=== PATIENT | female | born 1955 | race Caucasian/White ===

== ENCOUNTER 2024-07-24 15:42 | Emergency (ER) | payer OTHER, SELFPAY ==
[2024-07-24 16:03] VITALS: BP 143/85; PULSE 64; RESP 18; O2SAT 96
--- NOTE | 2024-07-24 16:15 | ED_ITS ---
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 Urine WBC 0-2 (0-5) Ur Squamous Epith Cells None (None-Few) Urine Bacteria Few A (None) Salicylates (1.0-10) mg/dL Urine Opiates Screen Negative (Negative) Ur Oxycodone Screen Negative (Negative) Urine Methadone Screen Negative (Negative) Acetaminophen (10.0-30.0) ug/mL Ur Barbiturates Screen Negative (Negative) U Tricyclic Antidepress Negative (Negative) Ur Phencyclidine Scrn Negative (Negative) Ur Amphetamines Screen Negative (Negative) U Methamphetamines Scrn Negative (Negative) U Benzodiazepines Scrn Negative (Negative) Urine Cocaine Screen Negative (Negative) U Marijuana (THC) Screen Negative (Negative) Ur Drug Screen Comment See Note Ethyl Alcohol (0.01-0.03) % SARS-CoV-2 (PCR) (Negative) Influenza Type A (PCR) (Negative) Influenza Type B (PCR) (Negative) RSV (PCR) (Negative) Lab Acknowledgement New Spec Needed Test Added 07/24/24 07/24/24 07/24/24 Range/Units 17:40 17:45 17:51 WBC 8.55 (4.50-11.00) K/uL RBC 4.05 (4.00-5.20) m/uL Hgb 12.7 (12.0-16.0) gm/dL Hct 37.9 (33.0-51.0) % MCV 94 (80-100) fL MCH 31 (26-34) pg MCHC 34 (32-36) gm/dL RDW Coeff of Jocelin 12.5 (11.5-15.5) % Plt Count 184 (140-440) K/uL Neut % (Auto) 73.8 H (42.0-72.0) % Lymph % (Auto) 16.5 L (20-44) % [place] % (Auto) 8.2 (0.0-11.0) % Eos % (Auto) 1.2 (0.0-7.0) % Baso % (Auto) 0.2 (0.0-3.0) % Neut # (Auto) 6.30 (1.7-7.0) K/uL Lymph # (Auto) 1.40 (0.90-2.90) K/uL [place] # (Auto) 0.70 (0.00-0.90) K/UL Eos # (Auto) 0.10 (0.00-0.50) K/uL Baso # (Auto) 0.02 (0.00-0.30) K/uL Abs Immat Gran (auto) 0.01 (0.00-0.30) K/uL Imm/Tot Granulo (auto) 0.1 % Sodium 135 (135-149) mmol/L Potassium 3.5 L (3.6-5.1) mmol/L Chloride 102 (96-114) mmol/L Carbon Dioxide 26 (20-32) mmol/L Anion Gap 7 (7-15) mEq/L BUN 15 (7-30) mg/dL Creatinine 0.7 (0.5-1.5) mg/dL Estimated GFR 92 ml/min Glucose 125 H (60-115) mg/dL Lactate 0.9 (0.5-1.9) mmol/L Calcium 9.5 (8.4-10.6) mg/dL Total Bilirubin 0.6 (0.1-1.5) mg/dL AST 26 (12-35) U/L ALT 32 (4-35) U/L Alkaline Phosphatase 92 (40-150) U/L Troponin I < 0.01 L (0.01-0.04) ng/mL C-Reactive Protein < 0.5 L (0.5-1.0) mg/dL NT-Pro-B Natriuret Pep 150 pg/mL Total Protein 6.1 (6.0-8.3) g/dL Albumin 4.0 (3.3-5.0) g/dL Urine Color (Yellow) Urine Appearance (Clear) Urine pH (5.0-8.5) Ur Specific [place] (1.000-1.030) Urine Protein (Negative) Urine Glucose (UA) (Negative) Urine Ketones (Negative) Urine Blood (Negative) Urine Nitrite (Negative) Urine Bilirubin (Negative) Urine Urobilinogen (0.2-1.0) Ur Leukocyte Esterase (Negative) Urine RBC (0-2) Urine WBC (0-5) Ur Squamous Epith Cells (None-Few) Urine Bacteria (None) Salicylates < 1.0 L (1.0-10) mg/dL Urine Opiates Screen (Negative) Ur Oxycodone Screen (Negative) Urine Methadone Screen (Negative) Acetaminophen < 10.0 L (10.0-30.0) ug/mL Ur Barbiturates Screen (Negative) U Tricyclic Antidepress (Negative) Ur Phencyclidine Scrn (Negative) Ur Amphetamines Screen (Negative) U Methamphetamines Scrn (Negative) U Benzodiazepines Scrn (Negative) Urine Cocaine Screen (Negative) U Marijuana (THC) Screen (Negative) Ur Drug Screen Comment Ethyl Alcohol < 0.01 L (0.01-0.03) % SARS-CoV-2 (PCR) Negative SARS-CoV-2 (Negative) Influenza Type A (PCR) Negative PCR FLU A (Negative) Influenza Type B (PCR) Negative PCR FLU B (Negative) RSV (PCR) Negative PCR RSV (Negative) Lab Acknowledgement <Jennifer Vaz MD - Last Filed: 07/25/24 17:02> Lab Results 07/24/24 07/24/24 07/24/24 Range/Units 16:42 17:00 17:14 WBC (4.50-11.00) K/uL RBC (4.00-5.20) m/uL Hgb (12.0-16.0) gm/dL Hct (33.0-51.0) % MCV (80-100) fL MCH (26-34) pg MCHC (32-36) gm/dL RDW Coeff of Jocelin (11.5-15.5) % Plt Count (140-440) K/uL Neut % (Auto) (42.0-72.0) % Lymph % (Auto) (20-44) % [place] % (Auto) (0.0-11.0) % Eos % (Auto) (0.0-7.0) % Baso % (Auto) (0.0-3.0) % Neut # (Auto) (1.7-7.0) K/uL Lymph # (Auto) (0.90-2.90) K/uL [place] # (Auto) (0.00-0.90) K/UL Eos # (Auto) (0.00-0.50) K/uL Baso # (Auto) (0.00-0.30) K/uL Abs Immat Gran (auto) (0.00-0.30) K/uL Imm/Tot Granulo (auto) % Sodium (135-149) mmol/L Potassium (3.6-5.1) mmol/L Chloride (96-114) mmol/L Carbon Dioxide (20-32) mmol/L Anion Gap (7-15) mEq/L BUN (7-30) mg/dL Creatinine (0.5-1.5) mg/dL Estimated GFR ml/min Glucose (60-115) mg/dL Lactate (0.5-1.9) mmol/L Calcium (8.4-10.6) mg/dL Total Bilirubin (0.1-1.5) mg/dL AST (12-35) U/L ALT (4-35) U/L Alkaline Phosphatase (40-150) U/L Troponin I (0.01-0.04) ng/mL C-Reactive Protein (0.5-1.0) mg/dL NT-Pro-B Natriuret Pep pg/mL Total Protein (6.0-8.3) g/dL Albumin (3.3-5.0) g/dL Urine Color Yellow (Yellow) Urine Appearance Clear (Clear) Urine pH 7.5 (5.0-8.5) Ur Specific [place] 1.015 (1.000-1.030) Urine Protein Negative (Negative) Urine Glucose (UA) Negative (Negative) Urine Ketones Negative (Negative) Urine Blood Negative (Negative) Urine Nitrite Negative (Negative) Urine Bilirubin Negative (Negative) Urine Urobilinogen 0.2 (0.2-1.0) Ur Leukocyte Esterase Negative (Negative) Urine RBC 0-2 (0-2) Urine WBC 0-2 (0-5) Ur Squamous Epith Cells None (None-Few) Urine Bacteria Few A (None) Salicylates (1.0-10) mg/dL Urine Opiates Screen Negative (Negative) Ur Oxycodone Screen Negative (Negative) Urine Methadone Screen Negative (Negative) Acetaminophen (10.0-30.0) ug/mL Ur Barbiturates Screen Negative (Negative) U Tricyclic Antidepress Negative (Negative) Ur Phencyclidine Scrn Negative (Negative) Ur Amphetamines Screen Negative (Negative) U Methamphetamines Scrn Negative (Negative) U Benzodiazepines Scrn Negative (Negative) Urine Cocaine Screen Negative (Negative) U Marijuana (THC) Screen Negative (Negative) Ur Drug Screen Comment See Note Ethyl Alcohol (0.01-0.03) % SARS-CoV-2 (PCR) (Negative) Influenza Type A (PCR) (Negative) Influenza Type B (PCR) (Negative) RSV (PCR) (Negative) Lab Acknowledgement New Spec Needed Test Added 07/24/24 07/24/24 07/24/24 Range/Units 17:40 17:45 17:51 WBC 8.55 (4.50-11.00) K/uL RBC 4.05 (4.00-5.20) m/uL Hgb 12.7 (12.0-16.0) gm/dL Hct 37.9 (33.0-51.0) % MCV 94 (80-100) fL MCH 31 (26-34) pg MCHC 34 (32-36) gm/dL RDW Coeff of Jocelin 12.5 (11.5-15.5) % Plt Count 184 (140-440) K/uL Neut % (Auto) 73.8 H (42.0-72.0) % Lymph % (Auto) 16.5 L (20-44) % [place] % (Auto) 8.2 (0.0-11.0) % Eos % (Auto) 1.2 (0.0-7.0) % Baso % (Auto) 0.2 (0.0-3.0) % Neut # (Auto) 6.30 (1.7-7.0) K/uL Lymph # (Auto) 1.40 (0.90-2.90) K/uL [place] # (Auto) 0.70 (0.00-0.90) K/UL Eos # (Auto) 0.10 (0.00-0.50) K/uL Baso # (Auto) 0.02 (0.00-0.30) K/uL Abs Immat Gran (auto) 0.01 (0.00-0.30) K/uL Imm/Tot Granulo (auto) 0.1 % Sodium 135 (135-149) mmol/L Potassium 3.5 L (3.6-5.1) mmol/L Chloride 102 (96-114) mmol/L Carbon Dioxide 26 (20-32) mmol/L Anion Gap 7 (7-15) mEq/L BUN 15 (7-30) mg/dL Creatinine 0.7 (0.5-1.5) mg/dL Estimated GFR 92 ml/min Glucose 125 H (60-115) mg/dL Lactate 0.9 (0.5-1.9) mmol/L Calcium 9.5 (8.4-10.6) mg/dL Total Bilirubin 0.6 (0.1-1.5) mg/dL AST 26 (12-35) U/L ALT 32 (4-35) U/L Alkaline Phosphatase 92 (40-150) U/L Troponin I < 0.01 L (0.01-0.04) ng/mL C-Reactive Protein < 0.5 L (0.5-1.0) mg/dL NT-Pro-B Natriuret Pep 150 pg/mL Total Protein 6.1 (6.0-8.3) g/dL Albumin 4.0 (3.3-5.0) g/dL Urine Color (Yellow) Urine Appearance (Clear) Urine pH (5.0-8.5) Ur Specific [place] (1.000-1.030) Urine Protein (Negative) Urine Glucose (UA) (Negative) Urine Ketones (Negative) Urine Blood (Negative) Urine Nitrite (Negative) Urine Bilirubin (Negative) Urine Urobilinogen (0.2-1.0) Ur Leukocyte Esterase (Negative) Urine RBC (0-2) Urine WBC (0-5) Ur Squamous Epith Cells (None-Few) Urine Bacteria (None) Salicylates < 1.0 L (1.0-10) mg/dL Urine Opiates Screen (Negative) Ur Oxycodone Screen (Negative) Urine Methadone Screen (Negative) Acetaminophen < 10.0 L (10.0-30.0) ug/mL Ur Barbiturates Screen (Negative) U Tricyclic Antidepress (Negative) Ur Phencyclidine Scrn (Negative) Ur Amphetamines Screen (Negative) U Methamphetamines Scrn (Negative) U Benzodiazepines Scrn (Negative) Urine Cocaine Screen (Negative) U Marijuana (THC) Screen (Negative) Ur Drug Screen Comment Ethyl Alcohol < 0.01 L (0.01-0.03) % SARS-CoV-2 (PCR) Negative SARS-CoV-2 (Negative) Influenza Type A (PCR) Negative PCR FLU A (Negative) Influenza Type B (PCR) Negative PCR FLU B (Negative) RSV (PCR) Negative PCR RSV (Negative) Lab Acknowledgement <Andrew Grewal MD - Last Filed: 07/25/24 09:32> Lab Results 07/24/24 07/24/24 07/24/24 Range/Units 16:42 17:00 17:14 WBC (4.50-11.00) K/uL RBC (4.00-5.20) m/uL Hgb (12.0-16.0) gm/dL Hct (33.0-51.0) % MCV (80-100) fL MCH (26-34) pg MCHC (32-36) gm/dL RDW Coeff of Jocelin (11.5-15.5) % Plt Count (140-440) K/uL Neut % (Auto) (42.0-72.0) % Lymph % (Auto) (20-44) % [place] % (Auto) (0.0-11.0) % Eos % (Auto) (0.0-7.0) % Baso % (Auto) (0.0-3.0) % Neut # (Auto) (1.7-7.0) K/uL Lymph # (Auto) (0.90-2.90) K/uL [place] # (Auto) (0.00-0.90) K/UL Eos # (Auto) (0.00-0.50) K/uL Baso # (Auto) (0.00-0.30) K/uL Abs Immat Gran (auto) (0.00-0.30) K/uL Imm/Tot Granulo (auto) % Sodium (135-149) mmol/L Potassium (3.6-5.1) mmol/L Chloride (96-114) mmol/L Carbon Dioxide (20-32) mmol/L Anion Gap (7-15) mEq/L BUN (7-30) mg/dL Creatinine (0.5-1.5) mg/dL Estimated GFR ml/min Glucose (60-115) mg/dL Lactate (0.5-1.9) mmol/L Calcium (8.4-10.6) mg/dL Total Bilirubin (0.1-1.5) mg/dL AST (12-35) U/L ALT (4-35) U/L Alkaline Phosphatase (40-150) U/L Troponin I (0.01-0.04) ng/mL C-Reactive Protein (0.5-1.0) mg/dL NT-Pro-B Natriuret Pep pg/mL Total Protein (6.0-8.3) g/dL Albumin (3.3-5.0) g/dL Urine Color Yellow (Yellow) Urine Appearance Clear (Clear) Urine pH 7.5 (5.0-8.5) Ur Specific [place] 1.015 (1.000-1.030) Urine Protein Negative (Negative) Urine Glucose (UA) Negative (Negative) Urine Ketones Negative (Negative) Urine Blood Negative (Negative) Urine Nitrite Negative (Negative) Urine Bilirubin Negative (Negative) Urine Urobilinogen 0.2 (0.2-1.0) Ur Leukocyte Esterase Negative (Negative) Urine RBC 0-2 (0-2) Urine WBC 0-2 (0-5) Ur Squamous Epith Cells None (None-Few) Urine Bacteria Few A (None) Salicylates (1.0-10) mg/dL Urine Opiates Screen Negative (Negative) Ur Oxycodone Screen Negative (Negative) Urine Methadone Screen Negative (Negative) Acetaminophen (10.0-30.0) ug/mL Ur Barbiturates Screen Negative (Negative) U Tricyclic Antidepress Negative (Negative) Ur Phencyclidine Scrn Negative (Negative) Ur Amphetamines Screen Negative (Negative) U Methamphetamines Scrn Negative (Negative) U Benzodiazepines Scrn Negative (Negative) Urine Cocaine Screen Negative (Negative) U Marijuana (THC) Screen Negative (Negative) Ur Drug Screen Comment See Note Ethyl Alcohol (0.01-0.03) % SARS-CoV-2 (PCR) (Negative) Influenza Type A (PCR) (Negative) Influenza Type B (PCR) (Negative) RSV (PCR) (Negative) Lab Acknowledgement New Spec Needed Test Added 07/24/24 07/24/24 07/24/24 Range/Units 17:40 17:45 17:51 WBC 8.55 (4.50-11.00) K/uL RBC 4.05 (4.00-5.20) m/uL Hgb 12.7 (12.0-16.0) gm/dL Hct 37.9 (33.0-51.0) % MCV 94 (80-100) fL MCH 31 (26-34) pg MCHC 34 (32-36) gm/dL RDW Coeff of Jocelin 12.5 (11.5-15.5) % Plt Count 184 (140-440) K/uL Neut % (Auto) 73.8 H (42.0-72.0) % Lymph % (Auto) 16.5 L (20-44) % [place] % (Auto) 8.2 (0.0-11.0) % Eos % (Auto) 1.2 (0.0-7.0) % Baso % (Auto) 0.2 (0.0-3.0) % Neut # (Auto) 6.30 (1.7-7.0) K/uL Lymph # (Auto) 1.40 (0.90-2.90) K/uL [place] # (Auto) 0.70 (0.00-0.90) K/UL Eos # (Auto) 0.10 (0.00-0.50) K/uL Baso # (Auto) 0.02 (0.00-0.30) K/uL Abs Immat Gran (auto) 0.01 (0.00-0.30) K/uL Imm/Tot Granulo (auto) 0.1 % Sodium 135 (135-149) mmol/L Potassium 3.5 L (3.6-5.1) mmol/L Chloride 102 (96-114) mmol/L Carbon Dioxide 26 (20-32) mmol/L Anion Gap 7 (7-15) mEq/L BUN 15 (7-30) mg/dL Creatinine 0.7 (0.5-1.5) mg/dL Estimated GFR 92 ml/min Glucose 125 H (60-115) mg/dL Lactate 0.9 (0.5-1.9) mmol/L Calcium 9.5 (8.4-10.6) mg/dL Total Bilirubin 0.6 (0.1-1.5) mg/dL AST 26 (12-35) U/L ALT 32 (4-35) U/L Alkaline Phosphatase 92 (40-150) U/L Troponin I < 0.01 L (0.01-0.04) ng/mL C-Reactive Protein < 0.5 L (0.5-1.0) mg/dL NT-Pro-B Natriuret Pep 150 pg/mL Total Protein 6.1 (6.0-8.3) g/dL Albumin 4.0 (3.3-5.0) g/dL Urine Color (Yellow) Urine Appearance (Clear) Urine pH (5.0-8.5) Ur Specific [place] (1.000-1.030) Urine Protein (Negative) Urine Glucose (UA) (Negative) Urine Ketones (Negative) Urine Blood (Negative) Urine Nitrite (Negative) Urine Bilirubin (Negative) Urine Urobilinogen (0.2-1.0) Ur Leukocyte Esterase (Negative) Urine RBC (0-2) Urine WBC (0-5) Ur Squamous Epith Cells (None-Few) Urine Bacteria (None) Salicylates < 1.0 L (1.0-10) mg/dL Urine Opiates Screen (Negative) Ur Oxycodone Screen (Negative) Urine Methadone Screen (Negative) Acetaminophen < 10.0 L (10.0-30.0) ug/mL Ur Barbiturates Screen (Negative) U Tricyclic Antidepress (Negative) Ur Phencyclidine Scrn (Negative) Ur Amphetamines Screen (Negative) U Methamphetamines Scrn (Negative) U Benzodiazepines Scrn (Negative) Urine Cocaine Screen (Negative) U Marijuana (THC) Screen (Negative) Ur Drug Screen Comment Ethyl Alcohol < 0.01 L (0.01-0.03) % SARS-CoV-2 (PCR) Negative SARS-CoV-2 (Negative) Influenza Type A (PCR) Negative PCR FLU A (Negative) Influenza Type B (PCR) Negative PCR FLU B (Negative) RSV (PCR) Negative PCR RSV (Negative) Lab Acknowledgement <Jose F Perla MD - Last Filed: 07/25/24 13:28> Imaging Data CT scan - head: Attestation: I have reviewed the pertinent imaging results. <Jennifer Siddiqui MD - Last Filed: 07/25/24 17:02> My impression: Did visualize her head CT, did not see any acute pathology but certainly will wait for radiology over read. <Jennifer Vaz MD - Last Filed: 07/25/24 17:02> Radiologist's impression: Patient: LILY MACIAS Facility:?[facility] Patient ID:?[id number] Site Patient ID:?[id number]. Site :?[id number] Study:?CT-Head WITHOUT-07/24/2024 4:58:49 PM Ordering Physician:Lydia Rodriguez Final Report: Indication : Altered mental status. Technique : CT of the brain without intravenous contrast. Comparison: None relevant available at the time of interpretation. Findings: No acute blurring of the razo-white differentiation. There is no intracranial hemorrhage. The ventricles are proportionate to the cerebral sulci. The 4th ventricle is midline. Basal cisterns appear patent. No abnormal extra-axial fluid collection identified. Mild parenchymal volume loss. There is moderate patchy periventricular hypodensity, favored to represent chronic ischemic microvascular disease. There is no intracranial mass, mass effect or midline shift identified. No depressed calvarial fracture. Impression: 1. No acute intracranial process. 2. [id number] chronic ischemic microvascular disease. Please note that all CT scans at this facility use dose modulation, iterative reconstruction, and/or weight-based dosing when appropriate to reduce radiation dose to as low as reasonably achievable. Dictated by Rich Kerr MD @ 07/24/2024 5:28:48 PM (Electronic Signature) <Jennifer Vaz MD - Last Filed: 07/25/24 17:02> Chest x-ray: Attestation: I have reviewed the pertinent imaging results. <Jennifer Siddiqui MD - Last Filed: 07/25/24 17:02> My impression: Portable chest x-ray appears clear to me on my preliminary review. <Jennifer Vaz MD - Last Filed: 07/25/24 17:02> Radiologist's impression: Patient: LILY MACIAS Facility:?[facility] Patient ID:?[id number] Site Patient ID:?[id number]. Site :?[id number] Study:?XRay-Chest 1 VIEW-07/24/2024 5:02:35 PM Ordering Physician:Lydia Rodriguez Final Report: INDICATION: Altered mental status TECHNIQUE: Chest radiograph 1 view COMPARISON: None FINDINGS: Mediastinum: The mediastinum is normal in appearance. The heart silhouette is normal in size and morphology. Lung: Both lungs are unremarkable in appearance. No sign of pleural effusion seen. No pneumothorax is identified. Bone and Soft tissue: Unremarkable for age. IMPRESSION: 1. No acute cardiopulmonary disease is seen. Dictated by: Rodolfo Serrato MD @ 07/24/2024 17:31:12 (Electronic Signature) <Jennifer Vaz MD - Last Filed: 07/25/24 17:02> ECG Data Attestation: I personally reviewed and interpreted this ECG as follows: (Sinus bradycardia, 48 beats per minute. Poor R-wave progression in anterior precordial leads, some artifact. No acute ST segment or concerning T-wave méndez es.) <Jennifer Vaz MD - Last Filed: 07/25/24 17:02> ECG interpretation date: 07/24/24 <Jennifer Vaz MD - Last Filed: 07/25/24 17:02> ECG interpretation time: 17:22 <Jennifer Vaz MD - Last Filed: 07/25/24 17:02> Prior ECG tracings: not available for review <Jennifer Vaz MD - Last Filed: 07/25/24 17:02> Discharge Plan Discharge Clinical Impression: Bipolar disorder, Acute psychosis, Anxiety <Jennifer Vaz MD - Last Filed: 07/25/24 17:02> Patient Disposition: Home w/ Parent or Adult <Jennifer Vaz MD - Last Filed: 07/25/24 17:02> Condition: Stable <Jennifer Vaz MD - Last Filed: 07/25/24 17:02> Instructions: Bipolar Disorder (DC), Anxiety (ED) <Jennifer Vaz MD - Last Filed: 07/25/24 17:02> Additional Instructions: Please continue on your regular medications. You have an appointment with a new psychiatrist, Nigel Avalos, here in the [facility] on 07/27/2024 at 10:00 a.m. Please follow-up with your other medical providers as scheduled. If you have any concerns especially thoughts of self-harm, episodes of confusion, or if you would like to be rechecked, please come back to the ER right away <Jennifer Vaz MD - Last Filed: 07/25/24 17:02> Follow Up/Referrals: Provider,Not a Local [Primary Care Provider] - <Jennifer Vaz MD - Last Filed: 07/25/24 17:02> Stand Alone Forms: [employer] Info Instructions <Jennifer Vaz MD - Last Filed: 07/25/24 17:02>
--- NOTE | 2024-07-24 16:41 | CRLHL7_ITS ---
For Patients: As a result of the Century Cures Act, medical imaging exams and procedure reports are released immediately into your electronic medical record. You may view this report before your referring provider. If you have questions, please contact your health care provider. Indication : Altered mental status. Technique : CT of the brain without intravenous contrast. Comparison: None relevant available at the time of interpretation. Findings: No acute blurring of the razo-white differentiation. There is no intracranial hemorrhage. The ventricles are proportionate to the cerebral sulci. The 4th ventricle is midline. Basal cisterns appear patent. No abnormal extra-axial fluid collection identified. Mild parenchymal volume loss. There is moderate patchy periventricular hypodensity, favored to represent chronic ischemic microvascular disease. There is no intracranial mass, mass effect or midline shift identified. No depressed calvarial fracture. Impression: 1. No acute intracranial process. 2. [id number] chronic ischemic microvascular disease. Please note that all CT scans at this facility use dose modulation, iterative reconstruction, and/or weight-based dosing when appropriate to reduce radiation dose to as low as reasonably achievable. Dictated by Rich Kerr MD @ 07/24/2024 5:28:48 PM (Electronically Signed)
--- NOTE | 2024-07-24 16:41 | CRLHL7_ITS ---
For Patients: As a result of the Cures Act, medical imaging exams and procedure reports are released immediately into your electronic medical record. You may view this report before your referring provider. If you have questions, please contact your health care provider. INDICATION: Altered mental status TECHNIQUE: Chest radiograph 1 view COMPARISON: None FINDINGS: Mediastinum: The mediastinum is normal in appearance. The heart silhouette is normal in size and morphology. Lung: Both lungs are unremarkable in appearance. No sign of pleural effusion seen. No pneumothorax is identified. Bone and Soft tissue: Unremarkable for age. IMPRESSION: 1. No acute cardiopulmonary disease is seen. Dictated by: Rodolfo Serrato MD @ 07/24/2024 17:31:12 (Electronically Signed)
[2024-07-24 16:50] LABS: Appearance Urine Clear (Clear); Bilirubin Urine Negative (Negative); Blood Urine Negative (Negative); Color Urine Yellow (Yellow); Glucose Urine Negative (Negative); Ketones Urine Negative (Negative); Leukocyte Esterase Urine Negative (Negative); Nitrite Urine Negative (Negative); Protein Urine Negative (Negative); Specific Gravity Urine 1.015 (1.000-1.030); Urobilinogen Urine 0.2 (0.2-1.0); pH Urine 7.5 (5.0-8.5)
[2024-07-24 16:55] LABS: Bacteria Urine Few; RBC Urine 0-2 (0-2); WBC Urine 0-2 (0-5)
[2024-07-24 17:05] VITALS: BP 131/87; PULSE 57; RESP 16; O2SAT 98
--- OUTSIDE RECORDS SUMMARY | 2024-07-24 17:05 | XMS_ITS | Encounter Summary ---
Author Organization [place] Address [facility] [place] [address] Care Team Providers Care Cubing Machine Tender Name Role Phone Ada Rogel PA-C Primary Care Provider Reason for Visit * Reason Comments Medication Refill Encounter Details Date Type Department Care Team (Late st Contact Info) Description 01/13/2022 Refill [facility] [place] [id number] [place] [phone] Jose F Bunch MD [address] [place] [address] Medication Refill Social History Tobacco Use Types Packs/Day Years Used Date Smoking Tobacco: Never Assessed PHQ-2 Answer Date Recorded PHQ-2 Score 2 01/12/2022 Comments Unknown Sex and Gender Information Value Date Recorded Sex Assigned at Not on file 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 No / Unsure 01/02/2022 1:37 PM CDT documented as of this encounter Miscellaneous Notes * Telephone Encounter - Gwyn Cevallos RN - 01/13/2022 8:08 AM CDT Daysi requesting sertraline, appears this medication was discontinued and can be denied. documented in this encounter Plan of Treatment Not on file documented as of this encounter Visit Diagnoses Diagnosis Posttraumatic stress disorder documented in this encounter Additional Health Concerns Assessment Noted Time PHQ-9 Depression Total Score: 12 022 10:44 AM CDT documented as of this encounter Care Teams Cubing Machine Tender Relationship Specialty Start Date End Date Ada Rogel PA, PA-C [address] [address] PCP - General Physician Squirrel Man 11/13/21 documented as of this encounter
--- OUTSIDE RECORDS SUMMARY | 2024-07-24 17:05 | XMS_ITS | Encounter Summary ---
Author Organization [facility] Address [address] [place] [address]. [place] [address] Care Team Providers Care Solar Engineer Name Role Phone Ada Rogel PA-C Primary Care Provider Encounter Details Date Type Department Care Team (Late st Contact Info) Description 03/27/2022 MyC Medical Advice [facility] [address] [place] [phone] Genoveva Horne LICSW [address] [address] Social History Tobacco Use Types Packs/Day Years Used Date Smoking Tobacco: Never Assessed PHQ-2 Answer Date Recorded PHQ-2 Score 2 01/12/2022 Comments Unknown Sex and Gender Information Value Date Recorded Sex Assigned at Not on file 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
--- OUTSIDE RECORDS SUMMARY | 2024-07-24 17:05 | XMS_ITS | Encounter Summary ---
Author Organization [place] Address [address] [place] [address]. [place] [address] Care Team Providers Care Baking Factory Worker Name Role Phone Ada Rogel PA-C Primary Care Provider Encounter Details Date Type Department Care Team (Late st Contact Info) Description 02/11/2022 MyC Medical Advice [facility] [address] [place] [phone] Genoveva Horne LICSW [address] [address] Social History Tobacco Use Types Packs/Day Years Used Date Smoking Tobacco: Never Assessed PHQ-2 Answer Date Recorded PHQ-2 Score 2 01/12/2022 Comments Unknown Sex and Gender Information Value Date Recorded Sex Assigned at Not on file 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
--- OUTSIDE RECORDS SUMMARY | 2024-07-24 17:05 | XMS_ITS | Continuity of Care Document ---
Author Organization [facility] Address [address] [address] [place] [address] Phone Care Team Providers Care Farmworker Bulbs Name Role Phone Unavailable Unavailable Unavailable Allergies, Adverse Reactions, Alerts Substance Reaction Status Criticality formaldehyde skin breaks out throat constric Active No Information Medications Medication Instructions Dosage Effective Dates (start - stop) Status Comments Fioricet 50 mg-325 mg-40 mg Tab take 1 - 2 tablet by oral route every 4 hours as needed not to exceed 6 tablets per 24hrs - Active Vicodin 5 mg-500 mg Tab take 1 tablet by ORAL route every day at bedtime - Active omeprazole 40 mg Cap, Delayed Release take 1 capsule (40MG) by ORAL route every day for 8 weeks to heal stomach - Active Procedures Procedure Date Colonoscopy Flex; W/bx 1/mx Ugi Endo; W/bx 1/mx Level Iv-surg Path Gross/micro 11 Advance Directives Directive Yes / No Effective Date File Name No Information Encounters Encounter Description Practice Location Reason(s) For Visit Diagnoses Date Provider Providers Copied on Encounter [facility], [address] [address], [place], [id number], [place] tel:[phone] [facility] No Information 1 No Information [facility], [address] [address], [place], [id number], [place] tel:[phone] Benjamín Bullock [facility] Polyp-intes/r ect/stom-unc BehGastritis W/o BleedBenign Neoplasm ColonCondylom a AcuminatumBil e Reflux GastritisDive rticulosis Of ColonBenign Neoplasm ColonDivertic ulosis Of ColonBile Reflux GastritisCond yloma Acuminatum Matilda GIBBS [address] [facility] [address], [place], [place], [id number], [place]. tel:[phone] Referring Provider: Bibiana Pardo[address], [address]. tel:[phone] Family History Family Member Type Diagnosis Age At Onset No Information Payers Payer name Insurance type Covered libertarian ID Authormarcin woodall(s) [employer] [id number] Social History Type Description Quantity Date Captured Comments Sex Female Smoking Status No Information Chief Complaint And Reason For Visit No Information Reason For Referral Reason For Referral No Information History Of Present Illness Encounter Date Complaint History Of Prese nt Illness No Information Functional Status Date Functional Assessmen t No Information Instructions Date Instruction Additional Infor mation No Information Assessments Type Assessment Date No Information Patient Care Teams Name Effective Dates (start - stop) Status Members No Information
--- OUTSIDE RECORDS SUMMARY | 2024-07-24 17:05 | XMS_ITS | Referral Summary ---
Author Organization [place] Address [facility] [place] [address] Care Team Providers Care Latin Dancer Name Role Phone Ada RogelC Primary Care Provider Allergies Active Allergy Reactions Criticality Noted Date Comments Formaldehyde 01/02/2022 Perfume 01/02/2022 Medications * This document contains information received from the source organization and may not represent a complete record from that organization. acetaminophen (TYLENOL) 325 MG tablet Take 2 tablets (650 mg) by mouth every 4 hours as needed for mild pain or fever 01/06/20 22 Active folic acid (FOLVITE) 1 MG tabletIndicatio ns:Altered mental status, unspecified altered mental status type Take 1 tablet (1 mg) by mouth daily 30 tablet 01/07/20 22 Active melatonin 5 MG tabletIndicatio ns:Altered mental status, unspecified altered mental status type Take 1 tablet (5 mg) by mouth At Bedtime 30 tablet 01/06/20 22 Active multivitamin w/minerals (THERA-VIT-M) tabletIndicatio ns:Altered mental status, unspecified altered mental status type Take 1 tablet by mouth daily 30 tablet 01/07/20 22 Active amLODIPine (NORVASC) 5 MG tabletIndicatio ns:Hypertension , unspecified type Take 1 tablet (5 mg) by mouth daily 30 tablet 01/06/20 22 Active propranolol ER (INDERAL LA) 60 MG 24 hr capsuleIndicati ons:Other migraine without status migrainosus, not intractable Take 1 capsule (60 mg) by mouth daily 30 capsule 01/06/20 22 Active SUMAtriptan (IMITREX) 25 MG tabletIndicatio ns:Other migraine without status migrainosus, not intractable Take 1 tablet (25 mg) by mouth at onset of headache for migraine May repeat in 2 hours. Max 8 tablets/24 hours. 30 tablet 2 01/24/20 22 Active QUEtiapine (SEROQUEL) 50 MG tabletIndicatio ns:Hypomania (H) TAKE 2 TABLETS BY MOUTH DAILY AT BEDTIME 60 tablet 02/24/20 22 Active amitriptyline (ELAVIL) 25 MG tablet Take 25-50 mg by mouth daily 10/25/19 22 022 Discontinued sertraline (ZOLOFT) 100 MG tabletIndicatio ns:Posttraumati c stress disorder Take 1 tablet (100 mg) by mouth daily 30 tablet 12/16/19 22 022 Discontinued Active Problems Problem Noted Date Diagnosed Date Confusion 01/02/2022 Posttraumatic stress disorder 11/19/2021 Lumbago 06/14/2013 Social History Tobacco Use Types Packs/Day Years Used Date Smoking Tobacco: Never Assessed PHQ-2 Answer Date Recorded PHQ-2 Score 2 01/12/2022 Adolescent Education Answer Date Record ed Getting School Help Needed Not on file 04/12 Comments Unknown Sex and Gender Information Value Date Recorded Sex Assigned at Not on file Legal Sex Female 3:46 AM 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 Gender Identity Not on file Sexual Orientation Not on file Last Filed Vital Signs Vital Sign Reading Time Taken Comments Blood Pressure 118/76 01/05/2022 3:47 PM CDT Pulse 58 01/05/2022 3:47 PM CDT Temperature 36.4 C (97.6 F) 01/05/2022 3:47 PM CDT Respiratory Rate 16 01/05/2022 3:47 PM CDT Oxygen Saturation 97% 01/05/2022 3:47 PM CDT Inhaled Oxygen Concentration - - Weight 62.9 kg (138 lb 11.2 oz) 01/04/2022 8:16 AM CDT Height 154.9 cm (5' 1) 01/04/2022 4:00 PM CDT Body Mass Index 26.21 01/04/2022 8:16 AM CDT Plan of Treatment Not on file Procedures Procedure Name Priority Date/Time Associated Diagnosis Comments BASIC METABOLIC PANEL STAT 01/03/2022 4:19 PM CDT COLONOSCOPY - HIM SCAN Routine 06/28/2015 from Last 3 Months or Most Recently Relevant to Health Maintenance Results * Basic metabolic panel (01/03/2022 4:19 PM CDT) Creatinine 0.92 0.51 - 0.95 mg/dL 01/03/2022 5:21 PM CDT [facility] Sodium 137 136 - 145 mmol/L 01/03/2022 5:21 PM CDT [facility] Potassium 4.0 3.4 - 5.3 mmol/L 01/03/2022 5:21 PM CDT [facility] Urea Nitrogen 15.4 8.0 - 23.0 mg/dL 01/03/2022 5:21 PM CDT [facility] Chloride 105 98 - 107 mmol/L 01/03/2022 5:21 PM CDT [facility] Carbon Dioxide (CO2) 22 22 - 29 mmol/L 01/03/2022 5:21 PM CDT [facility] Anion Gap 10 7 - 15 mmol/L 01/03/2022 5:21 PM CDT [facility] Glucose 95 70 - 99 mg/dL 01/03/2022 5:21 PM CDT [facility] GFR Estimate 67 >60 mL/min/1.7 3m2 01/03/2022 5:21 PM CDT [facility] Comment:Effective May 292020 eGFRcr in adults is calculated using the 2020 CKD-EPI creatinine equation which includes age and gender (Caryn et al., NEJ, DOI: 10.1056/WRFVio5147828) Calcium 9.6 8.8 - 10.2 mg/dL 01/03/2022 5:21 PM CDT [facility] Blood STRUCTURE OF RIGHT UPPER LIMB / Unknown Venipuncture / Unknown 01/03/2022 4:19 PM CDT 01/03/2022 4:26 PM CDT us [facility] - BLOOD ORDERABLES Fin al Result [facility] [place] [facility] [address] [facility] [address], [address] [place] [address] [phone] * Colonoscopy - HIM Scan (06/28/2015) Narrative Cristy Chinchilla Snehal - 06/28/2015 [facility] -Progress note Patient Reported PROCEDURES Final Result from Last 3 Months or Most Recently Relevant to Health Maintenance Insurance [employer] OTHER on file [address] [place] [address] [employer] Advance Directives For more information, please contact: [phone] * Full Code (Latest Code Status on File) Date Activated Date Inactivated Comments 01/04/2022 7:45 AM 01/05/2022 8:01 PM All basic an d advanced life-sustaining interventions are performed as appropriate Question Answer Comments Code status determined by: Unable to dis cuss and no AD/POLST on file; continue PREVIOUSLY ORDERED code status * Full Code Date Activated Date Inactivated Comments 01/03/2022 6:02 PM 01/04/2022 7:45 AM All basic and advanced life-sustaining interventions are performed as appropriate Question Answer Comments Code status determined by: Discussion with guillermo nt/ legal decision maker Care Teams Latin Dancer Relationship Specialty Start Date End Date Ada Rogel PA, PA-C [address] [address] PCP - General Physician Steel Tier 11/13/21
--- OUTSIDE RECORDS SUMMARY | 2024-07-24 17:05 | XMS_ITS | Clinical Summary ---
Author Organization [place] Address [facility] [place] [address] Care Team Providers Care Metalworking Specialist Name Role Phone Ada RogelC Primary Care [...] on file Legal Sex Female 3:46 AM PAIN MANAGEMENT NURSE Gender Identity Not on file Sexual Orientation [...] 01/04/2022 8:16 AM CDT Plan of Treatment Health Maintenance Due Date Last Done Comments ADVANCE CARE PLANNING 1955 ANNUAL REVIEW OF HM ORDERS [address] CT COLONOGRAPHY 1955 DEXA 1953 FIT 1953 FLEX SIG 1953 MAMMO SCREENING 1953 sDNA (Cologuard) 1953 HEPATITIS C SCREENING 1971 LIPID 1993 ZOSTER IMMUNIZATION (1 of 2) 2003 FALL RISK ASSESSMENT 2018 MEDICARE ANNUAL WELLNESS VISIT 2018 Pneumococcal Vaccine: 50+ Years (2 of 2 - PPSV23) 07/18/2019 05/23/2019 BMP 01/03/2023 01/03/2022, 01/02/2022 COVID-19 Vaccine ( season) 2024 07/11/2021, 11/19/2020, 10/22/2020 INFLUENZA VACCINE (#1) 2024 04/16/2019, 2017 PHQ-2 (once per calendar year) 2024 01/12/2022, 01/12/2022, 12/01/2021, Additional history exists GLUCOSE 01/03/2025 01/03/2022, 01/02/2022 COLONOSCOPY 06/28/2025 06/28/2015 COLORECTAL CANCER SCREENING 06/28/2025 RSV VACCINE (1 - 1-dose 75+ series) 2028 DTAP/TDAP/TD IMMUNIZATION (2 - Td or Tdap) 04/18/2028 04/18/2018, 01/02/1998 HPV IMMUNIZATION Aged Out No longer e ligible based on patient's age to complete this topic MENINGITIS IMMUNIZATION Aged Out No l onger eligible based on patient's age to complete this topic RSV MONOCLONAL ANTIBODY Aged Out No l onger eligible based on patient's age to complete this topic Procedures Procedure Name Priority Date/Time Associated Diagnosis [...] includes age and gender (Caryn et al., NEJM, DOI: 10.1056/[id number]) Calcium 9.6 8.8 - 10.2 mg/dL 01/03/2022 5:21 PM CDT [facility] Blood STRUCTURE OF RIGHT UPPER LIMB / Unknown Venipuncture / Unknown 01/03/2022 4:19 PM CDT 01/03/2022 4:26 PM CDT us [facility] - BLOOD ORDERABLES Fin al Result [facility] [facility] [address] [facility] [address], [address] [place] [address], [facility] [phone] * Colonoscopy - HIM Scan (06/28/2015) Narrative Cristy Chinchilla - 06/28/2015 [facility] -Progress note Patient Reported PROCEDURES Final Result from Last 3 Months or Most Recently Relevant to Health Maintenance Insurance [employer] OTHER on file [employer] Advance Directives For more information, please contact: [phone] * Full Code (Latest Code Status on [...] guillermo nt/ legal decision maker Care Teams Metalworking Specialist Relationship Specialty Start Date End Date Ada Rogel PA, PA-C [address] [address] PCP - General Physician Coiled Tubing Operator 11/13/21
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
--- OUTSIDE RECORDS SUMMARY | 2024-07-24 17:05 | XMS_ITS | Encounter Summary ---
Author Organization [place] Address [address] [place] [address]. [place] [address] Care Team Providers Care Orthotist Prosthetist Name Role Phone Ada Rogel PA-C Primary Care Provider Encounter Details Date Type Department Care Team (Late st Contact Info) Description 03/09/2022 MyC Medical Advice [facility] [address] [address] [place] [id number] Genoveva Horne LICSW [address] [address] Social History Tobacco Use Types Packs/Day Years Used Date Smoking Tobacco: Never Assessed PHQ-2 Answer Date Recorded PHQ-2 Score 2 01/12/2022 Comments Unknown Sex and Gender Information Value Date Recorded Sex Assigned at Not on file Legal Sex Female 3:46 AM [employer] Gender Identity Not on file Sexual Orientation Not on file documented as of this encounter Plan of Treatment Not on file documented as of this encounter Visit Diagnoses Not on filedocumented in this encounter Additional Health Concerns Assessment Noted Time PHQ-9 Depression Total Score: 12 022 10:44 AM CDT documented as of this encounter Care Teams Orthotist Prosthetist Relationship Specialty Start Date End Date Ada Rogel PA, PA-C [address] [address] PCP - General Physician Perfumer 11/13/21 documented as of this encounter
--- OUTSIDE RECORDS SUMMARY | 2024-07-24 17:05 | XMS_ITS | Encounter Summary ---
Author Organization [place] Address [facility] [place] [address] Care Team Providers Care Lay Up Operator Name Role Phone Ada Rogel PA-C Primary Care Provider Encounter Details Date Type Department Care Team (Late st Contact Info) Description 11/14/2021 MyC Medical Advice [facility] [address] [facility] [address] [place] [address] Rosa Euceda LICSW Social History Tobacco Use Types Packs/Day Years Used Date Smoking Tobacco: Never Assessed PHQ-2 Answer Date Recorded PHQ-2 Score 3 11/13/2021 Comments Unknown Sex and Gender Information Value Date Recorded Sex Assigned at Not on file Legal Sex Female 3:46 AM [employer] Gender Identity Not on file Sexual Orientation Not on file documented as of this encounter Plan of Treatment Not on file documented as of this encounter Visit Diagnoses Not on filedocumented in this encounter Additional Health Concerns Infection Onset Date Last Indicated Resolved Time Rule Out C-difficile 01/04/2022 01/04/2022 022 12:57 PM CDT Assessment Noted Time PHQ-9 Depression Total Score: 18 022 7:57 AM CDT documented as of this encounter Care Teams Lay Up Operator Relationship Specialty Start Date End Date Ada Rogel PA, PA-C [address] [address] PCP - General Physician Marbleizing Machine Tender 11/13/21 documented as of this encounter
--- OUTSIDE RECORDS SUMMARY | 2024-07-24 17:05 | XMS_ITS ---
Author Organization [facility] [place] [facility] Address [address] [place] [address] Care Team Providers Care Railcar Mechanic Name Role Phone Ada Rogel Primary Care Provider Ian Batista Unavailable [phone] REASON FOR VISIT questions on lab and medication Medications Medication SIG (Take, Route, Fr equency, Duration) Notes Start Date End Date Status hydrOXYzine HCl 25 MG 1 tablet orally On ce a day as needed Active Encounters Encounter Location Date Provider Diagnosis [address] [address] 12/20/2023 Ian Batista Anxiety F41.1 and Hypertension I10 Assessments Encounter Date Diagnosis (ICD Code) Assessment Notes Treatment Notes Treatment Clinical Notes Section Notes 12/20/2023 Anxiety (ICD-10 - F41.1) 12/20/2023 Hypertension (ICD-10 - I10) Plan Of Treatment Medication Medication Name Sig Start Date Stop Date Notes hydrOXYzine HCl 25 MG 1 tablet orally Once a day as needed Future Test Test Name Order Date Basic Metabolic Panel 12/21/2023 Progress Notes * Annie BASS ADOB: (68 yo F)Acc No.[id number]:12/20/2023 Patient: Demetria Annie ROSE :1955 A ge:68 Y S ex:Female [address] [facility] [place], [address] * Refills Refill hydrOXYzine HCl Tablet, 25 MG, orally, 30, 1 tablet, Once a day as needed, Refills=1 Subjective: * Chief Complaints: * Q uestions on lab and medication * Medical History: * Surgical History: * Hospitalization/Major Diagno stic Procedure: * Medications: Objective: * Vitals: * Physical Examination: Assessment: * Assessment: 1. A nxiety - F41.1 2 . H ypertension - I10 Plan: * Treatment: 2. 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
--- OUTSIDE RECORDS SUMMARY | 2024-07-24 17:05 | XMS_ITS ---
Author Organization [facility] Address [address] [place] [address] Care Team Providers Care Geriatric Psychiatrist Name Role Phone Ada Rogel Primary Care Provider Encounters Encounter Location Date Provider Diagnosis [address] [place] [address] 12/20/2023 Ada Rogel Plan Of Treatment No Information Progress Notes * Annie BASS ADOB: (68 yo F)Acc No.[id number]:12/20/2023 Patient: B Annie ROSE :1955 A ge:68 Y S ex:Female [address] [facility], [address] * true * Date: Generated for Gloria smith/Sai/eTransmitting on: 0 07/24/2024 05:05 PM CAR HOP
--- OUTSIDE RECORDS SUMMARY | 2024-07-24 17:05 | XMS_ITS | Clinical Summary ---
Author Organization [facility] Address [place], [place] [address] Care Team Providers Care Potato Peeler Name Role Phone Mayte Grossman DO Primary Care Provider [phone] Allergies Active Allergy Reactions Criticality Noted Date Comments Formaldehyde Analogues Hives,Rash High 01/08/2011 Perfume *Unknown Unknown 01/02/2022 Medications * This document contains information received from the source organization and may not represent a complete record from that organization. diclofenac topical (Voltaren Arthritis Pain) 1 % gelIndications:Chr onic musculoskeletal pain Apply 4 g to affected areas topically to affected area(s) 4 times daily if needed 450 g 05/04/20 24 Active lidocaine 5 % ointmentIndication s:Hemorrhoids, unspecified hemorrhoid type Apply topically to affected area(s) 3 times daily if needed (hemorrhoids). 35.44 g 05/04/20 24 Active nicotine 7 mg/24 hr (NICODERM; HABITROL) 7 mg/24 hr patchIndications:T obacco use disorder Apply 1 Patch on dry, clean, hairless skin once daily if needed for Nicotine Craving. 28 Patch 4 12:15 PM [employer] 05/04/20 24 Active SUMAtriptan (IMITREX) 50 mg tabletIndications: Migraine without aura, not refractory Take 1 Tablet (50 mg) by mouth 2 times daily if needed for Migraine or Headache. Give at minimum 2hrs apart. Max Dose: 200mg per 24hrs. 10 Tablet 4 12:15 PM [employer] 05/04/20 24 Active QUEtiapine (SEROQUEL) 100 mg tabletIndications: Bipolar II disorder (HC) Take 1 Tablet (100 mg) by mouth at bedtime. 30 Tablet 1 06/01/20 24 Active Additional Information Patient taking differently: 50 mgOral BEDTIME, Reported on 07/13/2024 traZODone (DESYREL) 100 mg tabletIndications: Insomnia, unspecified type Take 0.5-1 Tablets (50-100 mg) by mouth at bedtime, may repeat once. 30 Tablet 1 06/01/20 24 Active folic acid 1 mg tabletIndications: Alcohol dependence with unspecified alcohol-induced disorder (HC) Take 1 Tablet (1 mg) by mouth once daily. 30 Tablet 1 06/01/20 24 Active multivitamin,ther and minerals (multivitamin with minerals) tabletIndications: Alcohol dependence with unspecified alcohol-induced disorder (HC) Take 1 Tablet by mouth once daily. 30 Tablet 1 06/01/20 24 Active thiamine (VITAMIN B1) 100 mg tabletIndications: Alcohol use disorder, severe, dependence (HC) Take 1 Tablet (100 mg) by mouth once daily. 30 Tablet 1 06/01/20 24 Active naltrexone (REVIA) 50 mg tabletIndications: Alcohol use disorder, severe, dependence (HC) Take 1 Tablet (50 mg) by mouth once daily in the evening. 30 Tablet 1 06/01/20 24 Active rosuvastatin (CRESTOR) 20 mg tabletIndications: Hyperlipidemia, unspecified hyperlipidemia type Take 1 Tablet (20 mg) by mouth at bedtime. 90 Tablet 1 07/06/19 25 Active FLUoxetine (PROZAC) 40 mg capsuleIndications :AUDREY (generalized anxiety disorder),Bipolar II disorder (HC) Take 1 Capsule (40 mg) by mouth at bedtime. 30 Capsule 07/13/19 25 Active hydrOXYzine HCL (ATARAX) 50 mg tabletIndications: AUDREY (generalized anxiety disorder) Take 0.5-1 Tablets (25-50 mg) by mouth every 8 hours if needed for Anxiety. 45 Tablet 07/13/19 25 Active methocarbamoL 500 mg tablet Take 1,000 mg by mouth every 6 hours if needed. 025 Discontinu ed(*Patien t states no longer taking) methocarbamoL 500 mg tabletIndications: Muscle spasm Take 2 Tablets (1,000 mg) by mouth every 8 hours if needed for Muscle Spasm. 60 Tablet 05/15/20 24 025 Discontinu ed(*Patien t states no longer taking) FLUoxetine (PROZAC) 20 mg capsuleIndications :AUDREY (generalized anxiety disorder),Bipolar II disorder (HC) Take 1 Capsule (20 mg) by mouth at bedtime. 30 Capsule 1 06/01/20 24 025 Discontinu ed(*Medica tion adjustment ) hydrOXYzine HCL (ATARAX) 25 mg tabletIndications: AUDREY (generalized anxiety disorder) Take 1 Tablet (25 mg) by mouth every 8 hours if needed for Anxiety or Itching. 30 Tablet 1 06/01/20 24 025 Discontinu ed(Reorder (E-cancel not sent)) propranolol ER (INDERAL LA) 60 mg Cs24 Sustained-Release capsule Take 60 mg by mouth once daily. 025 Discontinu ed(*Patien t states no longer taking) FLUoxetine (PROZAC) 20 mg capsuleIndications :Bipolar II disorder, severe, depressed, with anxious distress (HC) Take 1 Capsule (20 mg) by mouth once daily in the morning. 30 Capsule 1 07/12/19 25 025 Discontinu ed(Duplica te therapy (E-cancel not sent)) hydrOXYzine HCL (ATARAX) 25 mg tabletIndications: AUDREY (generalized anxiety disorder) Take 1 Tablet (25 mg) by mouth every 6 hours if needed for Anxiety. 25 Tablet 07/12/19 25 025 Discontinu ed(Duplica te therapy (E-cancel not sent)) Active Problems Problem Noted Date Diagnosed Date Raynaud's disease 04/27/2024 Polyarthritis 04/27/2024 Migraine without aura, not refractory 04/27/2024 Bipolar II disorder, severe, depressed, with anxious distress 04/26/2024 Alcohol use disorder, severe, in early remission 04/26/2024 Post-traumatic stress disorder, unspecified 03/30 Hallucinations, unspecified 04/26/2024 Tobacco use disorder 04/22/2024 AUDREY (generalized anxiety disorder) Resolved Problems Problem Noted Date Diagnosed Date Resolved Date Vitamin D deficiency 04/27/2024 025 Hyperkalemia 04/27/2024 07/13/2024 Wernicke encephalopathy 04/22/2024 10 Alcohol use disorder 04/22/2024 024 Alcohol dependence 04/22/2024 Hypokalemia 04/22/2024 04/26/2024 MDD (major depressive disord er), recurrent episode, moderate 04/26/2024 Encounters * This document contains information received from the source organization and may not represent a complete record from that organization. Date Type Department Care Team Description 07/24/2024 2:00 PM [employer] Office Visit [facility] [address] [place] [address] Deirdre Sim MD 07/20/2024 Refill [facility] [address] [address] Charlotte Solis NP Refill Request (Folic Acid, Quetiapine) 07/18/2024 2:00 PM [employer] Ancillary Procedure [facility] [address] [place] [address] 07/18/2024 1:30 PM [employer] Ancillary Procedure [facility] [address] [place] [address] 07/18/2024 Travel 07/13/2024 3:15 PM [employer] Office Visit [facility] [address] [place] [address] Mayte Grossman, DO Medicare ANNUAL (subsequent) Visit (would like to discuss medications); Immunization/Injecti on 07/13/2024 Travel 07/12/2024 Telephone [facility] [address] [place] [address] Mayte Grossman, DO Medication Problem 07/10/2024 Refill [facility] [address] [address] Charlotte Solis NP Refill Request (Fluoxetine, Trazodone) 07/06/2024 9:35 AM [employer] Office Visit [facility] [address] [place] [address] Mayte Grossman DO Establish Care; Toe Pain/problem (right great toe) 07/06/2024 Travel 06/24/2024 Refill [facility] [address] [address] Charlotte Solis NP Refill Request (Trazodone) 06/22/2024 Telephone [facility] [address] [place] [address] Deirdre Sim MD Appointment Reminder (07-24-24 ) 06/13/2024 2:55 PM [employer] Office Visit [facility] [address] [place] [address] Joaquin Cardenas MD Referral (Mental health, orthopedic for hips) 06/13/2024 Travel 06/01/2024 9:00 AM [employer] - 06/01/2024 11:59 PM [employer] Hospital Encounter [facility] [address] [address] Pema Griggs MD AUDREY (generalized anxiety disorder); Bipolar II disorder, severe, depressed, with anxious distress (HC); Bipolar II disorder (HC); Insomnia, unspecified type; Alcohol dependence with unspecified alcohol-induced disorder (HC); Alcohol use disorder, severe, dependence (HC); Tobacco use disorder 05/31/2024 9:00 AM [employer] - 05/31/2024 11:59 PM [employer] Hospital Encounter [facility] [address] [address] Pema Griggs MD AUDREY (generalized anxiety disorder); Bipolar II disorder, severe, depressed, with anxious distress (HC) 05/31/2024 Telephone [facility] [address] [address] Gonzalez Richards Mental Health Care Coordination 05/30/2024 9:00 AM [employer] - 05/30/2024 11:59 PM [employer] Hospital Encounter [facility] [address] [place] [address] Pema Griggs MD AUDREY (generalized anxiety disorder); Bipolar II disorder, severe, depressed, with anxious distress (HC) 05/30/2024 Travel 05/30/2024 Telephone [facility] [address] [place] [address] maverick GonzalezshiLeah Mental Health Care Coordination 05/30/2024 Telephone [facility] [address] [place] [address] Gonzalez Richards Mental Health Care Coordination 05/29/2024 9:00 AM [employer] - 05/29/2024 11:59 PM [employer] Hospital Encounter [facility] [address] [facility] [address] [place] [address] Pema Griggs MD AUDREY (generalized anxiety disorder); Bipolar II disorder, severe, depressed, with anxious distress (HC) 05/29/2024 Telephone [facility] [address] [place] [address] Esthela Beyer, [facility] for [facility] 05/26/2024 9:00 AM [employer]TING - 05/26/2024 11:59 PM [employer] Hospital Encounter [facility] [address] [facility] [address] [place] [address] Pema Griggs MD AUDREY (generalized anxiety disorder); Bipolar II disorder, severe, depressed, with anxious distress (HC) 05/24/2024 9:00 AM [employer] - 05/24/2024 11:59 PM [employer] Hospital Encounter [facility] [address] [address] Pema Griggs MD Tobacco use disorder (Primary Dx); AUDREY (generalized anxiety disorder); Bipolar II disorder, severe, depressed, with anxious distress (HC); Alcohol use disorder, severe, dependence (HC); Post-traumatic stress disorder, unspecified 05/23/2024 9:00 AM [employer] - 05/23/2024 11:59 PM [employer] Hospital Encounter [facility] [address] [facility] [address] [place] [address] Pema Griggs MD AUDREY (generalized anxiety disorder); Bipolar II disorder, severe, depressed, with anxious distress (HC) 05/22/2024 9:00 AM [employer] - 05/22/2024 11:59 PM [employer] Hospital Encounter [facility] [address] [facility] [address] [place] [address] Pema Griggs MD Tobacco use disorder (Primary Dx); AUDREY (generalized anxiety disorder); Bipolar II disorder, severe, depressed, with anxious distress (HC); Alcohol use disorder, severe, dependence (HC); Post-traumatic stress disorder, unspecified 05/19/2024 Telephone [facility] [address] [facility] [address] [place] [address] Jose Carlos Hernández RN Mental Health Care Coordination 05/19/2024 Telephone [facility] [address] [facility] [address] [place] [address] Jose Carlos Hernández, AZEB Mental Health Care Coordination 05/18/2024 8:57 AM [employer] - 05/18/2024 11:59 PM [employer] Hospital Encounter [facility] [address] [facility] [address] [place] [address] Pema Griggs MD Tobacco use disorder (Primary Dx); AUDREY (generalized anxiety disorder); Bipolar II disorder, severe, depressed, with anxious distress (HC); Alcohol use disorder, severe, dependence (HC); Post-traumatic stress disorder, unspecified 05/17/2024 8:58 AM [employer] - 05/17/2024 11:59 PM [employer] Hospital Encounter [facility] [address] [facility] [address] [place] [address] Pema Griggs MD AUDREY (generalized anxiety disorder); Bipolar II disorder, severe, depressed, with anxious distress (HC) 05/16/2024 9:00 AM [employer] - 05/16/2024 11:59 PM [employer] Hospital Encounter [facility] [address] [facility] [place] [address] Pema Griggs MD AUDREY (generalized anxiety disorder); Bipolar II disorder, severe, depressed, with anxious distress (HC) 05/15/2024 8:09 AM [employer]TING - 05/15/2024 11:59 PM [employer] Hospital Encounter [facility] [address] [facility] [place] [address] Pema Griggs MD AUDREY (generalized anxiety disorder) (Primary Dx); Bipolar II disorder, severe, depressed, with anxious distress (HC); Muscle spasm; Tobacco use disorder; Alcohol use disorder, severe, dependence (HC); Post-traumatic stress disorder, unspecified; Hyperkalemia; Migraine without aura, not refractory; Polyarthritis; Raynaud's disease without gangrene 05/15/2024 Travel 05/05/2024 Telephone [facility] [address] [address] [facility] (Updated phone screen for PHP. ) 05/02/2024 Telephone [facility] [address] [address] Radha Terry [facility] Mental Health Care Coordination (PHP telephone screen) 04/26/2024 Travel 04/23/2024 3:08 PM CDT - 04/26/2024 10:40 AM CDT Hospital Encounter [facility] [address] [place] [address] Kevin Purcell MD Bipolar II disorder (HC) (Primary Dx); Other problems related to social environment Discharge Disposition: Rehab Facility or Unit 04/22/2024 3:47 PM CDT - 04/23/2024 3:07 PM CDT Hospital Encounter [facility] [address] [place] [address] Jonathan Taylor MD McQuistan, Ian Mark, Depression, unspecified depression type (Primary Dx); Suicidal ideation; Ophthalmoplegia; Hallucinations; Alcohol dependence with unspecified alcohol-induced disorder (HC); Tobacco use disorder; Insomnia, unspecified type Discharge Disposition: Psychiatric Hos or Unit from Last 3 Months Immunizations Name Administration Dates Next Due Influenza, High-dose Inactivated 05/31/2018 Influenza, IIV4 07/10/2022,04/16/2019 Influenza, Inactivated AIIV4 (Age 65+ Years) Preserv Free 05/18/2023 Influenza, Inactivated IIV3 (Age 65+ Years) Preserv Free 07/13/2024 Pneumococcal conj 13-Valent (Prevnar 13) 019 Td (Age >=7 Years) 01/02/1998 Tdap 04/18/2018 Family History Medical History Relation Name Comments Cancer-breast Mother Cancer-breast Sister 1 Cancer-breast Sister 2 Relation Name Status Comments Mother Sister 1 Sister 2 Social History Tobacco Use Types Packs/Day Years Used Date Smoking Tobacco: Every Day Cigarettes 0.3 26.1 Started: 1998 Passive Smoke Exposure: Yes Smokeless Tobacco: Never Tobacco Cessation:Ready to Q uit: Yes; Counseling Given: Yes Alcohol Use Standard Drinks/Week Comments Not Currently 0 (1 standard drink = 0.6 oz pur e alcohol) last drank 04/22/2024 PHQ-2 Answer Date Recorded PHQ-2 TOTAL SCORE 4 07/13/2024 Social Connections Answer Date Recorded Do you often feel lonely or isolated from those around you? 4 04/26/2024 Financial Resource Strain Answer Date R ecorded Difficulty of Paying Living Expenses 2 04/22/2024 Difficulty of Paying Living Expenses 1 04/22/2024 Food Insecurity Answer Date Recorded Do you worry your food will run out before you are able to buy more? 1 04/26/2024 Transportation Needs Answer Date Record ed Does lack of transportation keep you from medica l appointments? 1 04/26/2024 Does lack of transportation keep you from work, meetings or getting things that you need? 1 04/26/2024 Housing Stability Answer Date Recorded What is your housing situation today? 1 04/26/2024 Interpersonal Safety Answer Date Record ed Are you being hit, kicked, p ushed or yelled at (see row info)? No 05/15/2024 Interpersonal Safety Abuse 12 - 18 Not on file 05/15/2024 Interpersonal Safety Ambulatory Vulnerability No t on file 05/15/2024 Utilities Answer Date Recorded Do you have trouble paying f or utilities (for example, heat, electricity, water, phone)? 1 04/26/2024 Comments No Sex and Gender Information Value Date Recorded Sex Assigned at Not on file Legal Sex Female 6:12 AM [employer] Gender Identity Not on file Sexual Orientation Not on file Obstetrics History Last Filed Vital Signs Vital Sign Reading Time Taken Comments Blood Pressure 93/63 07/13/2024 3:28 PM [employer] Pulse 69 07/13/2024 3:28 PM [employer] Temperature 36 C (96.8 F) 05/24/2024 11:00 AM [employer] Respiratory Rate 18 05/24/2024 11:00 AM [employer] Oxygen Saturation 94% 06/13/2024 2:58 PM [employer] Inhaled Oxygen Concentration - - Weight 68 kg (150 lb) 07/13/2024 3:28 PM [employer] Height 157.5 cm (5' 2) 07/13/2024 3:28 PM [employer] Body Mass Index 27.44 07/13/2024 3:28 PM [employer] Plan of Treatment Upcoming Encounters Date Type Department Care Team (Late st Contact Info) Description 10/04/2024 9:30 AM CDT Orders Only [facility] [address] [place] [address] Lab, [place] Health Maintenance Due Date Last Done Comments Hepatitis C screening for ag e 18-79 1971 Colonoscopy through age 75 1998 Zoster (shingles) series for age 50+ (1 of 2) 2003 Mammogram for age 45-75 06/24/2005 06/24/2004 DEXA/DXA scan for age 65+ 2018 Pneumococcal series for age 50+ (2 of 2 - PPSV23) 07/18/2019 05/23/2019 COVID-19 vaccine series ( season) 2024 05/18/2023, 07/10/2022, 07/11/2021, Additional history exists BMI (ht and wt on same day) for age 18+ 07/13/2025 07/13/2024, 07/06/2024, 06/13/2024 Medicare Wellness for age 65+ 07/14/2025 07/13/2024 Depression screening for age 12+ 07/18/2025 07/18/2024, 07/13/2024, 06/22/2024, Additional history exists RSV vaccine for adults or (1 - 1-dose 75+ series) 2028 Tetanus booster 04/18/2028 04/18/2018, 01/02/1998 Lipids for age 45-75 04/27/2029 04/27/2024 Tdap Completed 04/18/2018 Influenza for age 65+ Completed 07/13/2024 , 05/18/2023, 07/10/2022, Additional history exists Procedures Procedure Name Priority Date/Time Associated Diagnosis Comments UA W/ SEDIMENT EXAM REFLEXED PER CRITERIA Today 05/13/2024 12:39 PM [employer] AMMONIA Early AM 04/30/2024 6:19 AM [employer] HEPATIC FUNCTION PANEL Early AM 04/30/2024 6:19 AM [employer] CREATININE Early AM 04/30/2024 6:19 AM [employer]TING POTASSIUM Early AM 04/30/2024 6:19 AM [employer]TING SODIUM Early AM 04/30/2024 6:19 AM [employer]TING CREATININE Early AM 04/28/2024 6:41 AM CDT POTASSIUM Early AM 04/28/2024 6:41 AM CDT SODIUM Early AM 04/28/2024 6:41 AM CDT EKG 12 LEAD Routine 04/27/2024 5:39 PM CDT URINALYSIS MICROSCOPIC Timed 04/27/2024 10:56 AM CDT URINE CULTURE Today 04/27/2024 10:56 AM CDT UA W/ SEDIMENT EXAM REFLEXED PER CRITERIA Today 04/27/2024 10:56 AM CDT CREATININE BISMARK 04/27/2024 7:39 AM CDT POTASSIUM BISMARK 04/27/2024 7:39 AM CDT SODIUM BISMARK 04/27/2024 7:39 AM CDT LIPID PANEL Early AM 04/27/2024 7:39 AM CDT HEMOGLOBIN A1C Early AM 04/27/2024 7:39 AM CDT STAT DRUG SCREEN Today 04/26/2024 1 :02 PM CDT VITAMIN D 25 (DEFICIENCY) Today 04/26/2024 12:03 PM CDT VITAMIN B12 Early AM 04/23/2024 6:55 AM CDT MAGNESIUM Early AM 04/23/2024 6:55 AM CDT CREATININE Early AM 04/23/2024 6:55 AM CDT POTASSIUM Early AM 04/23/2024 6:55 AM CDT SODIUM Early AM 04/23/2024 6:55 AM CDT XR MAMMO BILAT SCREEN FFDM (IA) Timed 06/24/2004 11:25 AM [employer] from Last 3 Months or Most Recently Relevant to Health Maintenance Results * UA W/ SEDIMENT EXAM REFLEXED PER CRITERIA (05/13/2024 12:39 PM [employer]) Only the most recent of2 resultswithin the time period is included. COLOR Yellow Yellow Color 05/13/2024 12:55 PM [facility] CLARITY Clear Clear Clarity 05/13/2024 12:55 PM [facility] SPECIFIC GRAVITY,URINE 1.010 1.010, 1.015, 1.020, 1.025 05/13/2024 12:55 PM [facility] PH,URINE 7.0 6.0, 7.0, 8.0, 5.5, 6.5, 7.5, 8.5 05/13/2024 12:55 PM [facility] UROBILINOGEN, QUALITATIVE Normal Normal EU/dl 05/13/2024 12:55 PM [facility] PROTEIN, URINE Negative Negative mg/dL 05/13/2024 12:55 PM [facility] GLUCOSE, URINE Negative Negative mg/dL 05/13/2024 12:55 PM [facility] KETONES,URINE Negative Negative mg/dL 05/13/2024 12:55 PM [facility] BILIRUBIN,URI NE Negative Negative 05/13/2024 12:55 PM [facility] OCCULT BLOOD,URINE Negative Negative 05/13/2024 12:55 PM [facility] NITRITE Negative Negative 05/13/2024 12:55 PM [facility] LEUKOCYTE ESTERASE Negative Negative 05/13/2024 12:55 PM [facility] Urine URINE SPECIMEN / Unknown Non-Blood / Unknown 05/13/2024 12:39 PM [employer] 05/13/2024 12:48 PM [employer] us Liliya Coyle MD URINE Final Result [facility] [place]NAL ZIP [id number] [place] [id number] * SODIUM (04/30/2024 6:19 AM [employer]TING) Only the most recent of4 resultswithin the time period is included. SODIUM 137 136 - 145 mmol/L 04/30/2024 6:58 AM [facility] Blood BLOOD SPECIMEN / Unknown Venipuncture / Unknown 04/30/2024 6:19 AM [employer] 04/30/2024 6:33 AM [employer]TING [facility] Pamela [facility] CHEMISTRY Final Resul t Performing Organization Address City/[facility]/ZIP Co de Phone Number [facility] INTERNAL ZIP [id number] [address] [place] [address] * POTASSIUM (04/30/2024 6:19 AM [employer]TING) Only the most recent of4 resultswithin the time period is included. POTASSIUM 4.3 3.5 - 5.1 mmol/L 04/30/2024 6:58 AM [employer]TING [facility] Blood BLOOD SPECIMEN / Unknown Venipuncture / Unknown 04/30/2024 6:19 AM [employer] 04/30/2024 6:33 AM [employer] PIPE FITTING [facility] Final Resul t Performing Organization Address City/[facility]/ZIP Co de Phone Number [facility] INTERNAL ZIP [address] [address] [place] [address] * (ABNORMAL) CREATININE (04/30/2024 6:19 AM [employer]) Only the most recent of4 resultswithin the time period is included. eGFR 75(L) >90 mL/min/1.7 3m2 04/30/2024 6:58 AM [facility] Comment:As of 2021, eG FR is calculated by the CKD-EPI creatinine equation without race adjustment. eGFR can be influenced by muscle mass, exercise, and diet. The reported eGFR is an estimation only and is only applicable if the renal function is stable. CREATININE 0.83 0.50 - 0.90 mg/dL 04/30/2024 6:58 AM [facility] Blood BLOOD SPECIMEN / Unknown Venipuncture / Unknown 04/30/2024 6:19 AM [employer] 04/30/2024 6:33 AM [employer]TING [facility] CHEMISTRY Final Resul t [facility] INTERNAL ZIP [phone] [place] [address] * AMMONIA (04/30/2024 6:19 AM [employer]TING) Pathologist [facility] AMMONIA 18 16 - 60 umol/L 04/30/2024 6:58 AM [facility] Blood BLOOD SPECIMEN / Unknown Venipuncture / Unknown 04/30/2024 6:19 AM [employer] 04/30/2024 6:34 AM [employer]TING Narrative [facility] - 04/30/2024 6:58 AM [employer] 1. Sulfasalazine and its metabolite Sulfapyridine at therapeutic concentrations may lead to falsely low results. 2. Temozolomide and its metabolite MTIC may lead to falsely elevated results, and its metabolite AIC may lead to falsely low results. [facility] CHEMISTRY Final Resul t [facility] INTERNAL ZIP [id number] [address] [place] [address] * HEPATIC FUNCTION PANEL (04/30/2024 6:19 AM PLUMBER PIPE FITTING) Pathologist [facility] ALBUMIN 4.0 4.0 - 4.9 g/dL 04/30/2024 6:58 AM [facility] PROTEIN,TOTAL 6.4 6.0 - 8.0 g/dL 04/30/2024 6:58 AM [facility] BILIRUBIN,TOTAL 0.3 0.0 - 1.2 mg/dL 04/30/2024 6:58 AM [facility] BILIRUBIN,DIRECT 0.1 0.0 - 0.2 mg/dL 04/30/2024 6:58 AM [facility] ALK PHOSPHATASE 101 35 - 104 IU/L 04/30/2024 6:58 AM [facility] ALT (SGPT) 17 10 - 35 IU/L 04/30/2024 6:58 AM [facility] AST (SGOT) 19 10 - 35 IU/L 04/30/2024 6:58 AM PLUMBER PIPE FITTING [facility] Blood BLOOD SPECIMEN / Unknown Venipuncture / Unknown 04/30/2024 6:19 AM PLUMBER PIPE FITTING 04/30/2024 6:33 AM PLUMBER PIPE FITTING Abril Wylie ROTARY ENGRAVER CHEMISTRY Final Resul t Performing Organization Address City/[facility]/ZIP Co de Phone Number [facility] INTERNAL ZIP [address] [place] [address] * EKG 12 LEAD (04/27/2024 5:39 PM CDT) Interpretation Sinus bradycardia Possible Left atrial enlargement Low voltage QRS Cannot rule out Anterior infarct (cited on or before 18-Jun-2011) Abnormal ECG When compared with ECG of 22-Apr-2024 16:27, No significant change was found BEYOND NOW Ventricular Rate 57 BPM BEYOND NOW Atrial Rate 57 BPM BEYOND NOW P-R Interval 146 ms BEYOND NOW QRS Duration 74 ms BEYOND NOW QT 406 ms BEYOND NOW QTc 395 ms BEYOND NOW P [place] 57 degrees BEYOND NOW R [place] 10 degrees BEYOND NOW T [place] 61 degrees BEYOND NOW 04/27/2024 5:39 PM CDT 04/28/2024 1:49 PM CDT Abril Wylie HERNANDO EKG ORD Final Resul t Performing Organization Address City/[facility]/ZIP Co de Phone Number BEYOND NOW [place], [place] * (ABNORMAL) URINALYSIS MICROSCOPIC (04/27/2024 10:56 AM CDT) RBC 0-2 0-2, None Seen /HPF 04/27/2024 11:12 AM CDT [facility] WBC 0-2 0-2, 3-5, None Seen /HPF 04/27/2024 11:12 AM CDT [facility] BACTERIA Rare None Seen, Rare, Few Bacteria/H PF 04/27/2024 11:12 AM CDT [facility] EPITHELIAL CELLS Few None Seen, Few Epi/HPF 04/27/2024 11:12 AM CDT [facility] RENAL EPITHELIAL CELLS Few(A) (none) 04/27/2024 11:12 AM CDT [facility] Mucus Present 04/27/2024 11:12 AM CDT [facility] HYALINE CASTS 11-25(A) 0-2, 3-5 /LPF 04/27/2024 11:12 AM CDT [facility] Urine URINE SPECIMEN / Unknown Non-Blood / Unknown 04/27/2024 10:56 AM CDT 04/27/2024 10:59 AM CDT us Abril Lewis ROTARY ENGRAVER URINE Final Resul t [facility] INTERNAL ZIP [address] [place] [address] * URINE CULTURE (04/27/2024 10:56 AM CDT) CULTURE <10,000 CFU/mL multiple organisms 04/28/2024 10:36 AM CDT [facility] Urine URINE SPECIMEN / Unknown Non-Blood / Unknown 04/27/2024 10:56 AM CDT 04/27/2024 10:59 AM CDT us Abril Lewis NP MICROBIOLOGY Final Resul t [facility] [address] [place] [address], * Hemoglobin A1C Screening (04/27/2024 7:39 AM CDT) HEMOGLOBIN A1C SCREENING 5.3 <=6.4 % 04/27/2024 3:32 PM CDT [facility] Blood BLOOD SPECIMEN / Unknown Butterfly / Unknown 04/27/2024 7:39 AM CDT 04/27/2024 7:51 AM CDT Narrative [facility] - 04/27/2024 3:32 PM CDT (<5.7%) Normal (5.7% to 6.4%) Indicates prediabetes (>=6.5%) Confirms diabetes Falsely low levels may be seen with: Recent Transfusion, Recent Significant Blood Loss, Hemolytic Diseases, or Falsely elevated levels may be seen with: Untreated Anemias, Splenectomy us Nohemi Bustillos NP CHEMISTRY Final Result [facility] [address] [address], [place] * (ABNORMAL) Lipid Panel (04/27/2024 7:39 AM CDT) [facility] CHOLESTEROL,TOTAL 239(H) 100 - 199 mg/dL 04/27/2024 8:19 AM CDT [facility] Comment: Cholesterol, Total Reference Ranges Desirable <200 mg/dL Borderline 200-239 mg/dL High >=240 mg/dL TRIGLYCERIDES 111 <150 mg/dL 04/27/2024 8:19 AM CDT [facility] HDL CHOLESTEROL 76 >40 mg/dL 8:19 AM T [facility] NON-HDL CHOLESTEROL 163(H) <145 mg/dl 04/27/2024 8:19 AM T [facility] CHOL/HDL RATIO 3.14 <4.50 04/27/2024 8:19 AM T [facility] LDL CHOLESTEROL 141(H) <=130 mg/dL 04/27/2024 8:19 AM T [facility] VLDL CHOLESTEROL 22 <=30 mg/dL 04/27/2024 8:19 AM T [facility] PROVIDER ORDERED STATUS RANDOM 04/27/2024 8:19 AM T [facility] Blood BLOOD SPECIMEN / Unknown Butterfly / Unknown 04/27/2024 7:39 AM CDT 04/27/2024 7:52 AM CDT us Nohemi Bustillos NP CHEMISTRY Final Result [facility] INTERNAL ZIP [address] [address] [place] [address] * (ABNORMAL) STAT Drug Screen (04/26/2024 1:02 PM CDT) ACETAMINOPHEN URINE NEG <=10 mcg/mL 04/27/2024 2:[address] [facility] AMPHETAMINE URINE NEG <=500 ng/mL 04/27/2024 2:[address] [facility] BARBITURATE URINE NEG <=200 ng/mL 04/27/2024 2:[address] [facility] BENZODIAZEPINE URINE POS(A) <=100 ng/mL 04/27/2024 2:[address] [facility] BUPRENORPHRINE URINE NEG <=5 ng/mL 04/27/2024 2:[address] [facility] COCAINE METAB URINE NEG <=300 ng/mL 04/27/2024 2:[address] [facility] ETHANOL URINE NEG <=10 mg/dL 04/27/2024 2:[address] [facility] FENTANYL URINE NEG <=4 ng/mL 04/27/2024 2:[address] [facility] METHADONE URINE NEG <=300 ng/mL 04/27/2024 2:[address] [facility] OPIATES URINE NEG <=300 ng/mL 04/27/2024 2:[address] [facility] OXYCODONE URINE NEG <=100 ng/mL 04/27/2024 2:[address] [facility] PCP URINE NEG <=25 ng/mL 04/27/2024 2:[address] [facility] SALICYLATE URINE NEG <=10 mg/dL 04/27/2024 2:[address] [facility] THC 50 URINE NEG <=50 ng/mL 04/27/2024 2:[address] [facility] MASS SPECTROMETRY URINE See Below 04/27/2024 2:[address] [facility] Comment:Dextromethorphan, Di phenhydramine, Guaifenesin, Lamotrigine, Spironolactone, Trazodone and Trazodone metabolite present. Urine URINE SPECIMEN / Unknown Non-Blood / Unknown 04/26/2024 1:02 PM CDT 04/26/2024 1:14 PM CDT [facility] - 04/27/2024 2:04 AM CDT Please confirm buprenorphine and metabolites Please distinguish between amphetamine and methamphetamines Release to patient->Immediate Nohemi Bustillos ROTARY ENGRAVER URINE Final Result [facility] [address] [place] [address], [place] * VITAMIN D 25 (DEFICIENCY) (04/26/2024 12:03 PM CDT) VITAMIN D TOTAL 30.6 20.0 - 80.0 ng/mL 04/26/2024 4:15 PM CDT [facility] Blood BLOOD SPECIMEN / Unknown Butterfly / Unknown 04/26/2024 12:03 PM CDT 04/26/2024 12:06 PM CDT [facility] - 04/26/2024 4:15 PM CDT Vitamin D Status Deficiency: <20 ng/mL Insufficiency: 20-29 ng/mL Sufficiency: 30-80 ng/mL Possible Toxicity: >80 ng/mL Based on [place] of Medicine recommendations Biotin supplements may cause clinically significant interference for this test assay. If interference is suspected, it is strongly recommended that biotin is discontinued for at least one week prior to retesting. Nohemi Bustillos ROTARY ENGRAVER SEND OUTS Final Result [facility] [address] [place] [address], [place] * MAGNESIUM (04/23/2024 6:55 AM CDT) Pathologist [facility] MAGNESIUM 1.9 1.6 - 2.4 mg/dL 04/23/2024 8:05 AM CDT [facility] Blood BLOOD SPECIMEN / Unknown Venipuncture / Unknown 04/23/2024 6:55 AM CDT 04/23/2024 7:07 AM CDT Beau Riggs DO CHEMISTRY Final Resu lt Performing Organization Address City/[facility] Co de Phone Number [facility] [address] [place] [address], [place] [phone] * VITAMIN B12 (04/23/2024 6:55 AM CDT) VITAMIN B12 491 232 - 1,245 pg/mL 04/23/2024 6:24 PM CDT [facility] Blood BLOOD SPECIMEN / Unknown Venipuncture / Unknown 04/23/2024 6:55 AM CDT 04/23/2024 7:07 AM CDT Narrative [facility] - 04/23/2024 6:24 PM CDT Biotin supplements may cause clinically significant interference for this test assay. If interference is suspected, it is strongly recommended that biotin is discontinued for at least one week prior to retesting. Beau Riggs DO CHEMISTRY Final Resu lt Performing Organization Address [facility] Co de Phone Number [facility] [address] [place] [address], [place] * BC MAMMO BILAT SCRN FFDM (06/24/2004 11:25 AM PLUMBER PIPE FITTING) Anatomical Region Laterality Modality BREASTS, Breast Left, Breast Right Bilateral Mammography 06/24/2004 11:1 0 AM PLUMBER PIPE FITTING Narrative 06/25/2004 1:56 PM PLUMBER PIPE FITTING BILATERAL FULL-FIELD DIGITAL SCREENING MAMMOGRAM, 06/24/04 CLINICAL HISTORY: THIS IS AN ASYMPTOMATIC 49-YEAR-OLD PATIENT. FINDINGS: THE MAMMOGRAM WAS PERFORMED USING FULL FIELD DIGITAL TECHNIQUE AND INTERPRETED WITH THE BENEFIT OF COMPUTER-AIDED DETECTION. THE STUDY IS COMPARED TO PREVIOUS STUDIES FROM [facility] DATED 06/12/03 AND 09/04/99 AND SHOWS NO SIGNIFICANT CHANGE. THE BREAST TISSUE IS ALMOST ENTIRELY FAT. THERE ARE NO MASSES OR CALCIFICATIONS THAT ARE SUSPICIOUS FOR MALIGNANCY. IMPRESSION: THERE IS NO RADIOGRAPHIC EVIDENCE FOR MALIGNANCY. RECOMMEND ANNUAL MAMMOGRAMS. THE [facility] WILL PROVIDE A RESULTS POSTCARD TO THE PATIENT AT THE TIME OF THE APPOINTMENT OR THROUGH THE MAIL. Kassandra Brandon MD MAMMO Final Res ult from Last 3 Months or Most Recently Relevant to Health Maintenance Insurance [id number] [place] [address] MEDICARE ADVANTAGE [place] [id number] MEDICARE PART A HB ONLY Advance Directives * Full Code (Latest Code Status on File) Date Activated Date Inactivated Comments 04/26/2024 11:58 AM 05/14/2024 3:25 PM Question Answer Comments Code Status Discussion: Other (specify in commen ts): * Full Code Date Activated Date Inactivated Comments 04/23/2024 3:42 PM 04/26/2024 11:36 AM Question Answer Comments Code Status Discussion: Other SI * Full Code Date Activated Date Inactivated Comments 04/22/2024 6:58 PM 04/23/2024 3:25 PM Question Answer Comments Code Status Discussion: Unable to Assess Preferences, Provider to review later * Full Code Date Activated Date Inactivated Comments 06/18/2011 9:54 AM 06/18/2011 3:57 PM Care Teams Potato Peeler Relationship Specialty Start Date End Date Mayte Grossman DO [address] [place] [address] PCP - General Family Practice 07/06/24
--- OUTSIDE RECORDS SUMMARY | 2024-07-24 17:05 | XMS_ITS | Encounter Summary ---
Author Organization [place] Address [address] [place] [address] Care Team Providers Care Mission Support Specialist Name Role Phone Ada RogelC Primary Care Provider Encounter Details Date Type Department Care Team ([facility] st Contact Info) Description 02/18/2022 Telephone [facility] Behavioral Health Intake [address] [place] [id number] Generic, Behavioral Intake, Social History Tobacco Use Types Packs/Day Years Used Date Smoking Tobacco: Never Assessed PHQ-2 Answer Date Recorded PHQ-2 Score 2 01/12/2022 Comments Unknown Sex and Gender Information Value Date Recorded Sex Assigned at Not on file Legal Sex Female 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 Thanks, KASIE Santos on 03/26/2022 at 1:10 PM * Telephone Encounter - Yulirock Claudia - 02/18/2022 9:58 AM CDT ----- Message from VENKATESH Severino sent at 02/18/2022 9:39 AM CDT ----- Regarding: transfer pt to Group Patient Name: ?? Location of programming: [facility] Start Date:02/26/22 Group: 55[facility] 2 1-3pm Provider: (name of MD) Alivia Number of visits to be scheduled: 12 Length/Duration of Appointment in minutes: 120 mins Visit Type (VIDEO/TELEPHONE/IN-PERSON): zoom [id number] Additional notes: documented in this encounter Plan of Treatment Not on file documented as of this encounter Visit Diagnoses Not on filedocumented in this encounter Additional Health Concerns Assessment Noted Time PHQ-9 Depression Total Score: 12 022 10:44 AM CDT documented as of this encounter Care Teams Mission Support Specialist Relationship Specialty Start Date End Date Ada Rogel PA, PA-C [address] [address] PCP - General Physician Regional Extension Service Specialist 11/13/21 documented as of this encounter
--- OUTSIDE RECORDS SUMMARY | 2024-07-24 17:05 | XMS_ITS | Encounter Summary ---
Author Organization [facility] Address [facility] access [facility] [place] [address] Care Team Providers Care Stock Pitcher Name Role Phone Aad Rogel PA-C Primary Care Provider Encounter Details Date Type Department Care Team (Late st Contact Info) Description 11/25/2021 MyC Medical Advice [facility] [address] [place] [address] Carmita Resendiz, OTR/L Social History Tobacco Use Types Packs/Day Years Used Date Smoking Tobacco: Never Assessed PHQ-2 Answer Date Recorded PHQ-2 Score 3 11/13/2021 Comments Unknown Sex and Gender Information Value Date Recorded Sex Assigned at Not on file Legal Sex Female 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
--- OUTSIDE RECORDS SUMMARY | 2024-07-24 17:06 | XMS_ITS | Referral Summary ---
Author Organization [facility] Address [address] [place] [address] Care Team Providers Care Director Of Grants Name Role Phone Ada Rogel Primary Care Provider [phone] José Antonio Alonzo MD Unavailable [phone] Allergies Active Allergy Reactions Criticality Noted Date Comments Formaldehyde 01/08/2011 Formaldehyde Analogues Rash,Unknown High 01/27/2011 Other reaction(s): Hives Medications ALPRAZolam (XANAX) 0.25 mg oral tablet 1-2 tablet 08/13/2021 Active methocarbamoL (ROBAXIN) 500 mg oral tablet 2 tablets 04/19/2020 Acti ve propranoloL (INDERAL LA) 60 mg oral extended release capsule 24 HR Daily. Active amLODIPine (NORVASC) 5 mg oral tablet 02/26/2022 Active clonazePAM (KLONOPIN) 0.5 mg oral tablet 04/03/2022 Acti ve hydrOXYzine HCl (ATARAX) 25 mg oral tablet 02/10/2022 Active QUEtiapine (SEROQUEL) 25 mg oral tablet 1 tablet Activ e SUMAtriptan succinate (IMITREX) 25 mg oral tablet 01/05/2022 Active melatonin 5 mg oral chew tab PATIENT DEMAND ONLY. Active folic acid (FOLVITE) 1 mg oral tablet Daily. 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) 11/19/2020,10/22/2020 Social History Tobacco Use Types Packs/Day Years Used Date Smoking Tobacco: Every Day Cigarettes Smokeless Tobacco: Never Tobacco Cessation:Ready to Q uit: No; Counseling Given: Yes Alcohol Use Standard Drinks/Week Comments Yes 0 (1 standard drink = 0.6 oz pur e alcohol) daily Comments Unknown Sex and Gender Information Value Date Recorded Sex Assigned at Not on file Legal Sex Female 5:44 AM CDT Gender Identity Not on file Sexual Orientation Not on file Last Filed Vital Signs Vital Sign Reading Time Taken Comments Blood Pressure 153/99 09/08/2021 6:00 PM CDT Pulse 88 09/08/2021 6:00 PM CDT Temperature 35.9 C (96.7 F) 09/08/2021 2:06 PM CDT Respiratory Rate 18 09/08/2021 5:15 PM CDT Oxygen Saturation 96% 09/08/2021 6:00 PM CDT Inhaled Oxygen Concentration - - Weight 59 kg (130 lb) 01/08/2011 8:00 AM CDT Height 154.9 cm (5' 1) 09/08/2021 2:06 PM CDT Body Mass Index - - Plan of Treatment Not on file Insurance [facility] [place] [id number] [employer] MED[employer]AGE [address] [place] [id number] [employer] MEDICARE ADVANTAGE [address] [place], [facility] [employer] MEDIC[employer] ADVANTAGE Advance Directives For more information, please contact: [phone] Documents on File Type Date Recorded Patient Toll Bridge Operator Expl anation HCD - Complete 07/09/2015 6:13 PM * Full Code (Latest Code Status on File) Date Activated Date Inactivated Comments 09/08/2021 5:02 PM 09/09/2021 12:39 AM Question Answer Comments How was code status determined? Physician Determ ined Care Teams Director Of Grants Relationship Specialty Start Date End Date Ada Rogel PA [address] [facility] [place] [address] PCP - General Physician Pompom Maker 09/26/21 José Antonio Alonzo MD [address] [place] [facility] [place] [id number] Neurology 10/13/21
--- OUTSIDE RECORDS SUMMARY | 2024-07-24 17:06 | XMS_ITS | Encounter Summary ---
Author Organization [place] Address [facility] [place] [address] Care Team Providers Care Sanitation Worker Cleaning Machinery Name Role Phone Ada Rogel PA-C Primary Care Provider Encounter Details Date Type Department Care Team (Late st Contact Info) Description 01/07/2022 [facility] [address] [facility] [address] [place] [address] [facility] Social History Tobacco Use Types Packs/Day Years Used Date Smoking Tobacco: Never Assessed PHQ-2 Answer Date Recorded PHQ-2 Score 4 12/01/2021 Comments Unknown Sex and Gender Information Value Date Recorded Sex Assigned at Not on file Legal Sex Female 3:46 AM PATIENT RESOURCE SPECIALIST Gender Identity Not on file Sexual Orientation Not on file COVID-19 Exposure Response Date Recorded In the last 10 days, have yo u been in contact with someone who was confirmed or suspected to have Coronavirus/COVID-19? No / Unsure 01/02/2022 1:37 PM CDT documented as of this encounter Plan of Treatment Not on file documented as of this encounter Visit Diagnoses Not on filedocumented in this encounter Additional Health Concerns Assessment Noted Time PHQ-9 Depression Total Score: 12 022 10:44 AM CDT documented as of this encounter Care Teams Sanitation Worker Cleaning Machinery Relationship Specialty Start Date End Date Ada Rogel PA, PA-C [address] [address] PCP - General Physician Warehouse Associate 11/13/21 documented as of this encounter
--- OUTSIDE RECORDS SUMMARY | 2024-07-24 17:06 | XMS_ITS | Encounter Summary ---
Author Organization [place] Address Critical access hospital0 [facility] [place] [address] Care Team Providers Care Medical Videographer Name Role Phone Ada Rogel PA-C Primary Care Provider Encounter Details Date Type Department Care Team (Late st Contact Info) Description 01/12/2022 [facility] Mental Health [facility] Addiction [facility] [address] [address] [place] [address] [facility] Social History Tobacco Use Types Packs/Day Years Used Date Smoking Tobacco: Never Assessed PHQ-2 Answer Date Recorded PHQ-2 Score 2 01/12/2022 Comments Unknown Sex and Gender Information Value Date Recorded Sex Assigned at Not on file Legal Sex Female 3:46 AM ADMISSIONS ASSISTANT Gender Identity Not on file Sexual Orientation [...] documented as of this encounter Care Teams Medical Videographer Relationship Specialty Start Date End Date Ada Rogel PA, PA-C [address] [address] PCP - General Physician Mentally Impaired Teacher 11/13/21 documented as of this encounter
--- OUTSIDE RECORDS SUMMARY | 2024-07-24 17:06 | XMS_ITS | Clinical Summary ---
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) 11/19/2020,10/22/2020 Social History Tobacco Use Types Packs/Day [...] Mass Index - - Plan of Treatment Health Maintenance Due Date Last Done Comments Colonoscopy 1955 Hepatitis C Screening 1955 Lipid Screening 1955 Depression Assessment (PHQ-2) 1954 Zoster Vaccine (1 of 2) 2003 Pneumococcal 50+ Years (2 of 2 - PPSV23) 05/23/2020 05/23/2019 Medicare Wellness Visit 11/15/2020 11/16/2019 Mammogram Screening 04/11/2021 04/11/2019 Osteoporosis Screening 04/11/2021 04/11/2019 Yearly Review of HCD 09/08/2022 09/08/2021, 02/13/20 21 COVID-19 Vaccine ( - season) 2024 07/11/2021, 11/19/2020, 10/22/2020 Influenza Vaccine (#1) 2024 04/16/2019, 2017 RSV Vaccines (1 - 1-dose 75+ series) 2028 Adult Tetanus Booster 04/18/2028 04/18/2018, 998 Insurance [employer] MEDICARE ADVANTAGE [address] [place] [id number] [employer] MED[employer] ADV[employer]AGE [address] [place] [facility] [employer] MEDICARE AD[place]ANTAGE [place] [id number] [place] [id number] [employer]AGE [place] [id number] Advance Directives For more information, please contact: [phone] Documents on File Type Date Recorded Patient Coat Repair Inspector Expl anation HCD - Complete 07/09/2015 6:13 PM * Full Code (Latest Code Status on File) Date Activated Date Inactivated Comments 09/08/2021 5:02 PM 09/09/2021 12:39 AM Question Answer Comments How was code status determined? Physician Determ ined Care Teams Social Worker Assistant Relationship Specialty Start Date End Date Ada Rogel PA [address] [place] [address] PCP - General Physician Teaching Supervisor 09/26/21 José Antonio Alonzo MD [address] [place] [address] Neurology 10/13/21
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
[2024-07-24 17:20] VITALS: O2SAT 98
[2024-07-24 17:21] LABS: Lab Add On Test New Spec Needed
[2024-07-24 17:53] LABS: Lactate* 0.9 mmol/L (0.5-1.9)
[2024-07-24 17:54] LABS: Basophils Percent Auto 0.2 % (0.0-3.0); Eosinophils Percent Auto 1.2 % (0.0-7.0); Hematocrit 37.9 % (33.0-51.0); Hemoglobin* 12.7 gm/dL (12.0-16.0); Lymphocytes Percent Auto 16.5 % (20-44); Mean Corpuscular HGB Conc 34 gm/dL (32-36); Mean Corpuscular Hemoglobin 31 pg (26-34); Mean Corpuscular Volume 94 fL (80-100); Monocytes Percent Auto 8.2 % (0.0-11.0); Neutrophils Percent Auto 73.8 % (42.0-72.0); Platelet Count* 184 K/uL (140-440); RDW Coefficient of Variation % 12.5 % (11.5-15.5); Red Blood Count 4.05 m/uL (4.00-5.20); White Blood Count* 8.55 K/uL (4.50-11.00)
[2024-07-24 17:55] LABS: Basophils Absolute Auto 0.02 K/uL (0.00-0.30); Immature Granulocytes Abs Auto 0.01 K/uL (0.00-0.30); Immature Granulocytes Pct Auto 0.1 %
[2024-07-24 17:59] LABS: Slide Review Reflex No
[2024-07-24 18:00] VITALS: TEMP 36.9
[2024-07-24 18:09] LABS: Chloride* 102 mmol/L (96-114)
[2024-07-24 18:10] LABS: Potassium* 3.5 mmol/L (3.6-5.1); Sodium* 135 mmol/L (135-149)
[2024-07-24 18:12] LABS: Bilirubin Total* 0.6 mg/dL (0.1-1.5); Creatinine* 0.7 mg/dL (0.5-1.5); Estimated Glomerular Filt Rate 92 ml/min
[2024-07-24 18:13] LABS: Alanine Aminotransferase* 32 U/L (4-35); Alkaline Phosphatase* 92 U/L (40-150); Anion Gap 7 mEq/L (7-15); Aspartate Amino Transferase* 26 U/L (12-35); Blood Urea Nitrogen* 15 mg/dL (7-30); Calcium* 9.5 mg/dL (8.4-10.6); Carbon Dioxide* 26 mmol/L (20-32); Glucose* 125 mg/dL (60-115); Total Protein* 6.1 g/dL (6.0-8.3)
[2024-07-24 18:32] LABS: PCR FLU A Negative PCR FLU A (Negative); PCR FLU B Negative PCR FLU B (Negative); PCR RSV Negative PCR RSV (Negative); SARS PCR* Negative SARS-CoV-2 (Negative)
[2024-07-24 18:34] LABS: C Reactive Protein* < 0.5 mg/dL (0.5-1.0); Troponin I* < 0.01 ng/mL (0.01-0.04)
[2024-07-24 18:50] LABS: Ethanol* < 0.01 % (0.01-0.03); NT Pro B Type NatriureticPept* 150 pg/mL
[2024-07-24 19:42] VITALS: BP 137/104; PULSE 66; RESP 16; O2SAT 95
[2024-07-24 20:15] LABS: Amphetamine Screen Urine Negative (Negative); Barbiturate Screen Urine Negative (Negative); Benzodiazepines Screen Urine Negative (Negative); Cannabinoid Screen Urine Negative (Negative); Cocaine Screen Urine Negative (Negative); Methadone Screen Urine Negative (Negative); Methamphetamines Screen Urine Negative (Negative); Opiate Screen Urine Negative (Negative); Phencyclidine Screen Urine Negative (Negative); Tricyclic Antidepressant Urine Negative (Negative)
[2024-07-24 20:16] LABS: Oxycodone Screen Urine Negative (Negative)
[2024-07-24] MEDS: TRAZODONE HCL 50 MG TABLET 100 MG PO (21:59)
[2024-07-24] MEDS: diazePAM 5 MG TABLET PO (22:00)
[2024-07-24] MEDS: OLANZapine 5 MG TAB.RAPDIS 10 MG PO (22:02)
[2024-07-24] MEDS: QUETIAPINE 100 MG TABLET PO (22:02)
[2024-07-24 23:30] VITALS: BP 147/95; PULSE 80; RESP 16; O2SAT 97
[2024-07-24] MEDS: hydrOXYzine pamoate 25 MG CAPSULE PO (23:45)
[2024-07-25] MEDS: ACETAMINOPHEN 500 MG TABLET 1000 MG PO (02:30)
[2024-07-25 08:24] LABS: Acetaminophen* < 10.0 ug/mL (10.0-30.0); Salicylate* < 1.0 mg/dL (1.0-10)
[2024-07-25 12:47] VITALS: BP 142/90; PULSE 60; RESP 18; TEMP 36.6; O2SAT 95
== END 2024-07-25 13:33 | disposition home or self-care (01) ==
PROVIDERS: Family Medicine; Emergency Provider Emergency Medicine
DX: F31.9 Bipolar disorder, unspecified (principal); F29 Unspecified psychosis not due to a substance or known physiological condition; F41.9 Anxiety disorder, unspecified
CPT/HCPCS: 36415; 70450; 71045; 80053; 80143; 80179; 80306; 81001; 82077; 83605; 83880; 84484; 85025; 86140; 87086; 87631; 93005; 94761; 96374; 96375; 99284; 99285; Q3014; A9270

== ENCOUNTER 2025-03-21 11:20 | Outpatient (CLI) | payer OTHER, SELFPAY | END 2025-03-21 11:21 | disposition home or self-care (01) | LOC: AMB 03-26 16:50 | PROVIDERS: Visit Provider Family Medicine | DX: R41.82 Altered mental status, unspecified (principal) | CPT/HCPCS: A0425; A0427 ==

== ENCOUNTER 2025-03-21 11:52 | Emergency (ER) | payer OTHER, SELFPAY ==
--- OUTSIDE RECORDS SUMMARY | 2023-09-28 09:00 | XMS_ITS ---
Author Organization [facility] Address [address] [place] [address] Care Team Providers Care Calibration Laboratory Technician Name Role Phone Ada Rogel Primary Care Provider [phone] Carlos Goodman [phone] REASON FOR VISIT Had a fall, medication refill Encounters Encounter Location Date Provider Diagnosis [facility] [address] [place] [address] 09/28/2023 Carlos Lai Plan Of Treatment No Information Progress Notes * Annie BASS ADOB: (69 yo F)Acc No.[id number]:09/28/2023 Progress Notes Patient: Annie ROBBINS Provider: Valentín Lai PA-C :1955 A ge:68 Y S ex:Female Date:09/28/2023 Address:[address] [id number] Pcp:Ada Rogel Subjective: * Chief Complaints: * 1 . Had a fall, medication refill. * Medical History: Objective: * Vitals: Assessment: Plan: * Treatment: * * The named appointment provid er may or may not be the originator of this progress note, and it is not deemed complete until electronically signed by the appointment provider. Sign off status: Pending * Provider: Valentín Lai PA-C Date: 0 09/28/2023 Generated for Gloria smith/Sai/eTransmitting on: 0 03/21/2025 11:54 AM CDT
--- OUTSIDE RECORDS SUMMARY | 2023-09-28 10:00 | XMS_ITS ---
Author Organization [facility] Address [address] [place] [address] Care Team Providers Care Evaluation Assistant Name Role Phone Ada Rogel Primary Care Provider [phone] Carlos Goodman [phone] REASON FOR VISIT Had a fall, medication refill Encounters Encounter Location Date Provider Diagnosis [facility] [address] [place] [address] 09/28/2023 Carlos Lai Assessments Encounter Date Diagnosis (ICD Code) Assessment Notes Treatment Notes Treatment Clinical Notes Section Notes 09/28/2023 Other Plan Of Treatment No Information Progress Notes * BLAISEALONSOFLORCHARLOTTEAngieNicoleAnnie ADOB: (69 yo F)Acc No.[id number]:09/28/2023 Progress Notes Patient: Annie ROBBINS Provider: Valentín Lai PA-C :1955 A ge:68 Y S ex:Female Date:09/28/2023 Address[address] [id number] Pcp:Ada Rogel Subjective: * Chief Complaints: * 1 . Had a fall, medication refill. * HPI: V isit Prep: Is the patient fasting or non fasting today? _ ____. Pharmacy information updated? [facility] [place] Does the patient need refills on any medications today? _ ____. Pt prefers to receive Normal/Stable test results by _ ____.? Additional Notes: _ ____. T obacco Questionnaire: Smoking History D o you use tobacco _ ____ Exposure to Tobacco O ne or more persons in my household smoke tobacco(Cigarettes/Cigar or Pipes) _ ____ S UBJECTIVE: Patient is a 68-year-old female with a PMHx of HTN, peripheral neuropathy, cervical DDD, polyarthritis, migraine, vit D deficiency, alcohol use, depression, PTSD, bipolar disorder, anxiety, GERD who presents for evaluation s/p fall, medication refill. Fall:. * ROS: A ll pertinent positives and negatives noted in HPI. * Medical History: Objective: * Vitals: * Examination: G eneral Examination: GENERAL APPEARANCE: cooperative, nontoxic-appearing, in no acute distress, well developed, well nourished. HEAD: normocephalic, atraumatic. EYES: PERRL and EOM-I bilaterally. EARS: No external abnormalities bilaterally. Bilateral TMs intact. Auditory canals clear without evidence of infection or inflammation.. ORAL CAVITY: good dentition, mucosa moist, no lesions present. THROAT: clear, no erythema, no exudate, no tonsillar hypertrophy. NECK/THYROID: neck supple, no lymphadenopathy. SKIN: warm and dry, no rashes, no suspicious lesions.? HEART: regular rate and rhythm, S1, S2 normal, no murmurs, no rubs, no gallops. LUNGS: relaxed breathing at rest, clear to auscultation bilaterally. ABDOMEN: bowel sounds present in all quadrants, soft, nontender, nondistended. EXTREMITIES: no edema, no clubbing, good capillary refill in nail beds. PERIPHERAL PULSES: 2+ radial, 2+ posterior tibial, 2+ dorsalis pedis. NEUROLOGIC: alert and oriented, cooperative with exam, cranial nerves 2-12 grossly intact, motor strength within normal upper and lower extremities, 2+ reflexes at bilateral patellar areas, no tremor, gait normal. PSYCH: cooperative with exam, good eye contact, judgement and insight good. Assessment: Plan: * Treatment: * * The named appointment provid er may or may not be the originator of this progress note, and it is not deemed complete until electronically signed by the appointment provider. Sign off status: Pending * Provider: Valentín Lai PA-C Date: 0 09/28/2023 Generated for Gloria smith/Sai/Alvertosmitting on: 0 03/21/2025 11:55 AM CDT History and Physical Notes * HPI (History of Present Illness) Category Sub-Category Detail Notes Category Not es Tobacco Questionnaire Smoking History Do you use tobacco: Exposure to Tobacco One or more persons in my household smoke tobacco(Cigarettes/Cigar or Pipes): Visit Prep Is the patient fasting or non fasting tod ay? Pharmacy information updated? [facility] in [place] Does the patient need refills on any med ications today? Additional Notes: Pt prefers to receive Normal/Stable test results by SUBJECTIVE Patient is a 68-year-old female with a PMHx of HTN, peripheral neuropathy, cervical DDD, polyarthritis, migraine, vit D deficiency, alcohol use, depression, PTSD, bipolar disorder, anxiety, GERD who presents for evaluation s/p fall, medication refill. Fall: Examination Category Sub-Category Detail Notes Category Not es General Examination GENERAL APPEARANCE: cooperat judit, nontoxic-appearing, in no acute distress, well developed, well nourished HEAD: normocephalic, atrau matic EYES: PERRL and EOM-I bila terally EARS: No external abnormal ities bilaterally. Bilateral TMs intact. Auditory canals clear without evidence of infection or inflammation. THROAT: clear, no erythema, no exudate, no tonsillar hypertrophy NECK/THYROID: neck supple, no lymp hadenopathy HEART: regular rate and rhy thm, S1, S2 normal, no murmurs, no rubs, no gallops LUNGS: relaxed breathing at rest, clear to auscultation bilaterally ABDOMEN: bowel sounds present in all quadrants, soft, nontender, nondistended NEUROLOGIC: alert and oriented, cooperative with exam, cranial nerves 2-12 grossly intact, motor strength within normal upper and lower extremities, 2+ reflexes at bilateral patellar areas, no tremor, gait normal SKIN: warm and dry, no roro hes, no suspicious lesions EXTREMITIES: no edema, no clubbin g, good capillary refill in nail beds PERIPHERAL PULSES: 2+ radial, 2+ dependency director ior tibial, 2+ dorsalis pedis PSYCH: cooperative with exa m, good eye contact, judgement and insight good ORAL CAVITY: good dentition, muco sa moist, no lesions present
--- OUTSIDE RECORDS SUMMARY | 2023-09-28 11:00 | XMS_ITS ---
Author Organization [facility] Address [address] [place] [address] Care Team Providers Care Math And Sciences Department Chair Name Role Phone Ada Rogel Primary Care Provider [phone] Loan Ramsey [phone] REASON FOR VISIT Had a fall, medication refill Encounters Encounter Location Date [facility] [address] [place] [address] 09/28/2023 Loan Diaz Plan Of Treatment No Information Progress Notes * Annie BASS ADOB: (69 yo F)Acc No.[id number]:09/28/2023 Progress Notes Patient: Annie ROBBINS Provider: Brooke Diaz PA-C :1955 A ge:68 Y S ex:Female Date:09/28/2023 Address:[id number] Pcp:Ada Rogel Subjective: * Chief Complaints: * 1 . Had a fall, medication refill. * Medical History: Objective: * Vitals: Assessment: Plan: * Treatment: * * The named appointment provid er may or may not be the originator of this progress note, and it is not deemed complete until electronically signed by the appointment provider. Sign off status: Pending * Provider: Brooke Diaz PA-C Date: 0 09/28/2023 Generated for Printi ng/Faxing/eTransmitting on: 0 03/21/2025 11:55 AM CDT
[2025-03-21] VITALS (23 sets, daily range): BP systolic 105–134; BP diastolic 73–98; PULSE 70–90; RESP 12–24; TEMP 37; O2SAT 93–96; BMI 32.1
--- OUTSIDE RECORDS SUMMARY | 2025-03-21 11:55 | XMS_ITS | Clinical Summary ---
Author Organization [facility] Address [address] [place] [address] Care Team Providers Care Electricians Top Helper Name Role Phone Mayte Grossman DO Primary Care Provider [phone] Allergies Active Allergy Reactions Criticality Noted Date Comments Formaldehyde Analogues Hives,Rash High 01/08/2011 Perfume *Unknown Unknown 01/02/2022 Medications * This document contains information received from the source organization and may not represent a complete record from that organization. diclofenac topical (Voltaren Arthritis Pain) 1 % gelIndications:Fuel Oil Truck Driver anitra musculoskeletal pain Apply 4 g to affected areas topically to affected area(s) 4 times daily if needed 450 g 05/04/20 24 Active lidocaine 5 % ointmentIndications :Hemorrhoids, unspecified hemorrhoid type Apply topically to affected area(s) 3 times daily if needed (hemorrhoids). 35.44 g 05/04/20 24 Active SUMAtriptan (IMITREX) 50 mg tabletIndications:M igraine without aura, not refractory Take 1 Tablet (50 mg) by mouth 2 times daily if needed for Migraine or Headache. Give at minimum 2hrs apart. Max Dose: 200mg per 24hrs. 10 Tablet 4 12:15 PM SUPERVISOR WASH HOUSE 05/04/20 24 Active multivitamin,ther and minerals (multivitamin with minerals) tabletIndications:A lcohol dependence with unspecified alcohol-induced disorder (HC) Take 1 Tablet by mouth once daily. 30 Tablet 1 12/05/20 24 Active pantoprazole 20 mg tabletIndications:G astroesophageal reflux disease, unspecified whether esophagitis present Take 1 Tablet (20 mg) by mouth once daily. 90 Tablet 1 09/14/19 25 Active hydrOXYzine HCL 50 mg tabletIndications:G AD (generalized anxiety disorder) Take 0.5-1 Tablets (25-50 mg) by mouth every 8 hours if needed (anxiety). 45 Tablet 3 11/04/19 25 Active naltrexone 50 mg tabletIndications:A lcohol use disorder, severe, dependence (HC) Take 1 Tablet (50 mg) by mouth once daily in the evening. 90 Tablet 11/04/19 25 Active SPIRONOLACTONE ORAL Take 50-100 mg by mouth. Active folic acid 1 mg tabletIndications:A lcohol dependence with unspecified alcohol-induced disorder (HC) Take 1 Tablet (1 mg) by mouth once daily. 90 Tablet 2 12/06/19 25 Active rosuvastatin 20 mg tabletIndications:H yperlipidemia, unspecified hyperlipidemia type Take 1 Tablet (20 mg) by mouth at bedtime. 90 Tablet 2 01/03/20 25 Active traZODone (DESYREL) 100 mg tabletIndications:I nsomnia, unspecified type Take 0.5-1 Tablets (50-100 mg) by mouth at bedtime. Appointment needed for refills. 30 Tablet 02/09/20 25 Active FLUoxetine (PROZAC) 40 mg capsuleIndications: AUDREY (generalized anxiety disorder),Bipolar II disorder (HC) Take 1 Capsule (40 mg) by mouth at bedtime. 30 Capsule 02/09/20 25 Active Active Problems Problem Noted Date Diagnosed Date Gastroesophageal reflux disease 09/13/2024 Raynaud's disease 04/27/2024 Polyarthritis 04/27/2024 Migraine without aura, not refractory 04/27/2024 Bipolar II disorder, severe, depressed, with anxious distress 04/26/2024 Alcohol use disorder, severe, in early remission 04/26/2024 Post-traumatic stress disorder, unspecified 03/30 Hallucinations, unspecified 04/26/2024 Tobacco use disorder 04/22/2024 AUDREY (generalized anxiety disorder) Resolved Problems Problem Noted Date Diagnosed Date Resolved Date Vitamin D deficiency 04/27/2024 025 Hyperkalemia 04/27/2024 07/13/2024 Wernicke encephalopathy 04/22/202403/30 Alcohol use disorder 04/22/2024 024 Alcohol dependence 04/22/2024 Hypokalemia 04/22/2024 04/26/2024 MDD (major depressive disord er), recurrent episode, moderate 04/26/2024 Encounters Date Type Department Care Team Description 02/07/2025 Refill [facility] [address] [place] [address] Mayte Grossman, DO Refill Request; Error-please disregard 02/07/2025 Refill [facility] [address] [place] [address] aMyte Grossman, Refill Request (Fluoxetine) 02/05/[address] [address] Mayte Grossman, Refill Request (Trazodone) 01/09/2025 1:00 PM CDT Office Visit [facility] [address] [place] [address] Juan Diego Otero, [facility] Visit 01/09/2025 Travel 01/03/[address] [address] Mayte Grossman, Refill Request (Trazodone) 01/01/2025 Refill [facility] [address] [place] [address] Mayte Grossman, Refill Request (Rosuvastatin 20mg tablets) from Last 3 Months Immunizations Immunization Administration Dates Next Due Influenza, High-dose Inactivated [...] Date Smoking Tobacco: Every Day Cigarettes 0.3 26.7 Started: 1998 Passive Smoke Exposure: Yes Smokeless Tobacco: Never Tobacco Cessation:Ready to Q uit: Yes; Counseling Given: Yes Alcohol Use Standard Drinks/Week Comments Not Currently 0 (1 standard drink = 0.6 oz pur e alcohol) last drank 04/22/2024 PHQ-2 Answer Date Recorded PHQ-2 TOTAL SCORE 3 11/24/2024 Social Connections Answer Date Recorded Do you [...] on file Legal Sex Female 6:12 AM SUPERVISOR WASH HOUSE Gender Identity Not on file Sexual Orientation Not on file Obstetrics History Last Filed Vital Signs Vital Sign Reading Time Taken Comments Blood Pressure 123/79 11/15/2024 9:22 AM CDT Pulse 57 11/15/2024 9:22 AM CDT Temperature 36 C (96.8 F) 05/24/2024 11:00 AM SUPERVISOR WASH HOUSE Respiratory Rate 18 05/24/2024 11:00 AM SUPERVISOR WASH HOUSE Oxygen Saturation 95% 11/03/2024 2:18 PM CDT Inhaled Oxygen Concentration - - Weight 68.9 kg (152 lb) 11/15/2024 9:22 AM CDT Height 157.5 cm (5' 2) 07/13/2024 3:28 PM SUPERVISOR WASH HOUSE Body Mass Index 27.8 07/13/2024 3:28 PM SUPERVISOR WASH HOUSE Plan of Treatment Health Maintenance Due Date Last Done Comments Hepatitis C screening for age 18-79 1971 Colonoscopy through age 75 1998 Zoster (shingles) series for age 50+ (1 of 2) 2003 Pneumococcal series for age 50+ (2 of 2 - PPSV23, PCV20, or PCV21) 07/18/2019 05/23/2019 COVID-19 vaccine series ( season) 2025 05/18/2023, 07/10/2022, 07/11/2021, Additional history exists Influenza Vaccine (#1) 2025 , 05/18/2023, 07/10/2022, Additional history exists BMI (ht and wt on same day) for age 18+ 07/13/2025 07/13/2024, 07/06/2024, 06/13/2024 Medicare Wellness for age 65+ 07/14/2025 07/13/2024 Mammogram for age 45-75 07/18/2025 07/18/2024, 06/24 Depression screening for age 12+ 11/24/2025 11/24/2024, 09/13/2024, 09/13/2024, Additional history exists RSV vaccine for adults or (1 - 1-dose 75+ series) 2028 Tetanus booster 04/18/2028 04/18/2018, 01/02/1998 Lipids for age 45-75 11/03/2029 11/03/2024, 04/27/20 DEXA/DXA scan for age 65+ Completed 07/18/2024 Hepatitis B series for 19+ Aged Out N o longer eligible based on patient's age to complete this topic Procedures Procedure Name Priority Date/Time Associated Diagnosis Comments LIPID PANEL W REFLEX MEASURED LDL Routine 11/03/2024 2:58 PM CDT Hyperlipidemia, unspecified hyperlipidemia type XR DXA BONE DENSITY 2 SITES AXIAL Routine 07/18/2024 2:48 PM SUPERVISOR WASH HOUSE Menopause XR MAMMO BILAT SCREENING Routine 07/18/2024 2:25 PM SUPERVISOR WASH HOUSE Visit for screening mammogram from Last 3 Months or Most Recently Relevant to Health Maintenance Results * LIPID PANEL W REFLEX MEASURED LDL (11/03/2024 2:58 PM CDT) CHOLESTEROL, TOTAL 159 <200 mg/dL [facility] HDL CHOLESTEROL 84 > OR = 50 mg/dL [facility] TRIGLYCERIDES 41 <150 mg/dL [facility] LDL-CHOLESTEROL 63 mg/dL (calc) [facility] Comment: Reference range: <100 Desirable range <100 mg/dL for primary prevention; <70 mg/dL for patients with CHD or diabetic patients with > or = 2 CHD risk factors. LDL-C is now calculated using the Paulie-Carlitos calculation, which is a validated novel method providing better accuracy than the Friedewald equation in the estimation of LDL-C. Paulie PORTER et al. YADIRA. 2013;310(19): 4850-0497 (http://education.Cimetrix.mGenerator/faq/ZAG610) CHOL/HDLC RATIO 1.9 <5.0 (calc) [facility] NON HDL CHOLESTEROL 75 <130 mg/dL (calc) [facility] Comment: For patients with diabetes plus 1 major ASCVD risk factor, treating to a non-HDL-C goal of <100 mg/dL (LDL-C of <70 mg/dL) is considered a therapeutic option. Blood BLOOD SPECIMEN / Unknown 11/03/2024 2:58 PM CDT 11/03/2024 2:59 PM CDT Narrative [facility] - 11/04/2024 3:40 AM CDT FASTING:NO FASTING: NO Mayte Grossman DO CHEMISTRY Final Resu lt [facility] [address] [place] [address], [facility] [address] [place] [address] * (ABNORMAL) XR DXA BONE DENSITY 2 SITES AXIAL [73096.1] (07/18/2024 2:48 PM SUPERVISOR WASH HOUSE) Anatomical Region Laterality Modality Spine, HIPS, HIPL, HIPR Other Impressions 07/25/2024 1:36 PM SUPERVISOR WASH HOUSE Osteoporosis. RECOMMENDATIONS: The National Osteoporosis Foundation recommends pharmacologic treatment for patients with T-scores of -2.5 or less, patients with prior history of fragility fractures, or patients with 10-year probability of greater than 3% at hips or greater than 20% of suffering major osteoporotic fractures. Recommend continued optimization of calcium and vitamin D intake through dietary means and/or supplementation and regular exercise. Consider pharmacologic therapy for osteoporosis. Follow-up bone density reading in 2 years if therapy initiated to assess therapeutic efficacy. Michelle Kaba PA-C [facility] 07/25/2024 Narrative 07/25/2024 1:36 PM SUPERVISOR WASH HOUSE For Patients: Results are automatically released to your [employer] ([employer]) account once available, in compliance with federal regulations. This means that you may see your results before your provider has had a chance to review them. Please allow 2-3 business days for your provider to comment on the results. XR DXA Bone Mineral Density (BMD) EXAM LOCATION: [facility] [address] [facility] [address] PATIENT NAME: Annie Bass DATE OF : 1955 EXAM DATE: 07/18/2024 REQUESTING PROVIDER: Mayte Grossman DO GENDER AT : female HEIGHT: 5' 2 (07/13/2024) WEIGHT: 150 lb (07/13/2024) MENOPAUSAL STATUS: Postmenopausal RACE/ETHNICITY: White RISK FACTORS: Alcohol > 3 drinks/day (current), Alcohol > 3 drinks/day (prior), Family History of Osteoporosis, Smoking (current), Smoking (prior), and White Race CURRENT MEDICATION FOR BONE LOSS: NONE INDICATION: Menopause COMPARISON DATE(S): None DXA scans are compared to prior studies for a patient only when the two (or more) studies were performed on the same scanner. It is not possible to compare data generated on one scanner to data from another because there are not standards in DXA equipment. This applies even if the two scanners are made by the same building mover. PROCEDURE: Dual-energy x-ray absorptiometry performed with routine technique. Reporting is completed in the form of a T-score. The T-score represents the standard deviation from peak bone mass based on young healthy adult. A Z-score is used for diagnosis in premenopausal women, and for men under the age of 50. FINDINGS: RESULT LUMBAR SPINE L1 - L4 BMD: 0.955 g/cm2 T-Score: - 1.9 Z-Score: - 0.4 Change from prior: None RESULTS FEMUR Left femoral neck BMD: 0.679 g/cm2 T-Score: - 2.6 Z-Score: - 0.9 Change from prior: None Right femoral neck BMD: 0.724 g/cm2 T-Score: - 2.3 Z-Score: - 0.6 Change from prior: None Left hip BMD: 0.728 g/cm2 T-Score: - 2.2 Z-Score: - 0.8 Change from prior: None Right hip BMD: 0.743 g/cm2 T-Score: - 2.1 Z-Score: - 0.6 Change from prior: None WHO criteria: Normal: T-score at or above -1 SD Osteopenia: T-score between -1.1 and -2.4 SD Osteoporosis: T-score at or below -2.5 SD FRAX RISK CALCULATION (USED FOR OSTEOPENIA ONLY): 10-year probability of major osteoporotic fracture: 22.2%. 10-year probability of hip fracture: 10.9%. us Mayte Grossman DO DEXA Final Resu lt * XR MAMMO BILAT SCREENING (07/18/2024 2:25 PM SUPERVISOR WASH HOUSE) Anatomical Region Laterality Modality BREASTS, Breast Left, Breast Right Bilateral Mammography Impressions 08/01/2024 2:30 PM SUPERVISOR WASH HOUSE There is no radiographic evidence for malignancy. Recommend annual mammograms. MAMMOGRAM ASSESSMENT: ACR 1 Negative PATIENTS: You will also receive a letter with your examination results in an easy to read format. If you have questions about your results, please contact your referring provider. Narrative 08/01/2024 2:30 PM SUPERVISOR WASH HOUSE For Patients: As a result of the Cures Act, medical imaging exams and procedure reports are released immediately into your electronic medical record. You may view this report before your referring provider. If you have questions, please contact your health care provider. XR MAMMO BILAT SCREENING [[id number]] CLINICAL HISTORY: This is an asymptomatic 69 y.o. patient. INDICATION FOR EXAM: Mammogram Screening. TECHNIQUE: CC & MLO views were obtained. This study was evaluated with the assistance of Computer-Aided Detection. COMPARISON FILM: Priors not available at the time of this report. FINDINGS: The breasts are almost entirely fatty. There are no dominant masses, suspicious micro calcifications or areas of architectural distortion. Mayte Grossman DO MAMMO Final Resu lt from Last 3 Months or Most Recently Relevant to Health Maintenance Insurance [id number] [place] [id number] MEDICARE ADVANTAGE [address] [place] [id number] MEDICARE PART A HB ONLY Advance Directives [...] 9:54 AM 06/18/2011 3:57 PM Care Teams Electricians Top Helper Relationship Specialty Start Date End Date Mayte [place] [address] [place] [place] [address] PCP - General Family Practice 07/06/24
--- OUTSIDE RECORDS SUMMARY | 2025-03-21 11:55 | XMS_ITS | Encounter Summary ---
Author Organization [place] Address [facility] [place] [address] Care Team Providers Care Papeterie Table Assembler Name Role Phone Ada Rogel PA-C Primary Care Provider Encounter Details Date Type Department Care Team (Late st Contact Info) Description 11/25/[address] 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
--- OUTSIDE RECORDS SUMMARY | 2025-03-21 11:55 | XMS_ITS | Encounter Summary ---
Author Organization [place] Address [facility] [place] [address] Care Team Providers Care Communications Analyst Name Role Phone Ada Rogel PA-C Primary Care Provider Encounter Details Date Type Department Care Team (Late st Contact Info) Description 01/07/2022 [facility] Mental Health & Addiction Services [address] [address] [place] [address] [facility] Social History Tobacco Use Types Packs/Day Years Used Date Smoking Tobacco: Never Assessed PHQ-2 Answer Date Recorded PHQ-2 Score 4 12/01/2021 Comments Unknown Sex and Gender Information Value Date Recorded Sex Assigned at Not on file Legal Sex Female 3:46 AM BEEF SELECTOR Gender Identity Not on file Sexual Orientation [...] documented as of this encounter Care Teams Communications Analyst Relationship Specialty Start Date End Date Ada Rogel PA, PA-C [address] [address] PCP - General Physician Car Seat Maker 11/13/21 documented as of this encounter
--- OUTSIDE RECORDS SUMMARY | 2025-03-21 11:55 | XMS_ITS | Encounter Summary ---
Author Organization [place] Address [facility] [place] [address] Care Team Providers Care Slasher Tender Name Role Phone Ada Rogel PA-C Primary Care Provider Reason for Visit * Reason Comments Medication Refill Encounter Details Date Type Department Care Team (Late st Contact Info) Description 01/13/2022 Refill [facility] Mental Health & Addiction [place] [id number] [place] [address] Jose F Bunch MD [address] [place] [address] Medication Refill Social History Tobacco Use Types Packs/Day Years Used Date Smoking Tobacco: Never Assessed PHQ-2 Answer Date Recorded PHQ-2 Score 2 01/12/2022 Comments Unknown Sex and Gender Information Value Date Recorded Sex Assigned at Not on file 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
--- OUTSIDE RECORDS SUMMARY | 2025-03-21 11:55 | XMS_ITS | Clinical Summary ---
Author Organization [place] Address [facility] 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 Gender Identity Not on file Sexual Orientation [...] HEPATITIS C SCREENING 1971 LIPID 1993 ZOSTER VACCINE (1 of 2) 2003 FALL RISK ASSESSMENT 2018 MEDICARE ANNUAL WELLNESS VISIT 2018 PNEUMOCOCCAL VACCINE 50+ YEARS (2 of 2 - PCV20 or PCV21) 05/23/2020 05/23/2019 PHQ-2 (once per calendar year) 2024 01/12/2022, 01/12/2022, 12/01/2021, Additional history exists DIABETES SCREENING 01/03/2025 01/03/2022, 01/02/2022 COVID-19 VACCINE ( - season) 2025 07/11/2021, 11/19/2020, 10/22/2020 INFLUENZA VACCINE (#1) 2025 04/16/2019, 2017 COLONOSCOPY 06/28/2025 06/28/2015 COLORECTAL CANCER SCREENING 06/28/2025 RSV VACCINE (1 - 1-dose 75+ series) 2028 DTAP/TDAP/TD VACCINE (2 - Td or Tdap) 04/18/2028 04/18/2018, 01/02/1998 HPV VACCINE (No Doses Required) Completed MENINGITIS VACCINE Aged Out No longer eligible based on patient's age to [...] and gender (Caryn et al., NEJ, DOI: 10.1056/DSKNbp9801868) Calcium 9.6 8.8 - 10.2 mg/dL 01/03/2022 5:21 PM CDT [facility] Blood STRUCTURE OF RIGHT UPPER LIMB / Unknown Venipuncture / Unknown 01/03/2022 4:19 PM CDT 01/03/2022 4:26 PM CDT us [facility] - BLOOD ORDERABLES Fin al Result [facility] [address] [facility], [address] [place] [address], [facility] [phone] * Colonoscopy - HIM Scan (06/28/2015) Narrative Cristy Chinchilla - 06/28/2015 [facility] -Progress note us Patient Reported PROCEDURES Final Result from Last 3 Months or Most Recently Relevant to Health Maintenance [facility] on file [id number] [place] [phone] [employer] Advance Directives For more information, please contact: [phone] * Full Code (Latest Code Status on [...] guillermo nt/ legal decision maker Care Teams Alteration Hand Relationship Specialty Start Date End Date Ada Rogel PA, PA-C [address] [address] PCP - General Physician Leasing Professional 11/13/21
--- OUTSIDE RECORDS SUMMARY | 2025-03-21 11:55 | XMS_ITS | Encounter Summary ---
Author Organization [place] Address [facility] [place] [address] Care Team Providers Care Tube Cleaning Operator Name Role Phone Ada Rogel PA-C Primary Care Provider Encounter Details Date Type Department Care Team (Late st Contact Info) Description 11/14/2021 MyC Medical Advice [facility] Mental Health & Addiction Services [address] [facility] [address] [place] [address] Rosa Euceda LICSW Social History Tobacco Use Types Packs/Day Years Used Date Smoking Tobacco: Never Assessed PHQ-2 Answer Date Recorded PHQ-2 Score 3 11/13/2021 Comments Unknown Sex and Gender Information Value Date Recorded Sex Assigned at Not on file Legal Sex 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
--- OUTSIDE RECORDS SUMMARY | 2025-03-21 11:55 | XMS_ITS | Encounter Summary ---
Author Organization [facility] Address [address] [place] [address]. [place] [address] Care Team Providers Care Exercise Instruct Name Role Phone Ada Rogel PA-C Primary Care Provider Encounter Details Date Type Department Care Team (Late st Contact Info) Description 03/27/2022 MyC Medical Advice [facility] [address] [address] [place] [phone] Genoveva Horne LICSW [address] [address] Social History Tobacco Use Types Packs/Day Years Used Date Smoking Tobacco: Never Assessed PHQ-2 Answer Date Recorded PHQ-2 Score 2 01/12/2022 Comments Unknown Sex and Gender Information Value Date Recorded Sex Assigned at Not on file Legal Sex Female 3:46 AM DIE TESTER Gender Identity Not on file Sexual Orientation Not on file documented as of this encounter Plan of Treatment Not on file documented as of this encounter Visit Diagnoses Not on filedocumented in this encounter Additional Health Concerns Assessment Noted Time PHQ-9 Depression Total Score: 12 022 10:44 AM CDT documented as of this encounter Care Teams Exercise Instruct Relationship Specialty Start Date End Date Ada Rogel PA, PA-C [address] [address] PCP - General Physician Biological Engineer 11/13/21 documented as of this encounter
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
--- OUTSIDE RECORDS SUMMARY | 2025-03-21 11:55 | XMS_ITS | Clinical Summary ---
Author Organization [facility] Address [address] [place] [address] Care Team Providers Care Registry Nurse Name Role Phone Ada Rogel Primary Care Provider [phone] José Antonio Alonzo MD Unavailable [phone] Allergies Active Allergy Reactions Criticality Noted Date [...] Date Diagnosed Date HTN (hypertension) 12/04/2016 Immunizations Immunization Administration Dates Next Due SPIKEVAX (Moderna) 12+ Yrs [facility] ([facility] physical therapist) 11/19/2020,10/22/2020 Social History Tobacco Use Types [...] Pneumococcal 50+ Years (2 of 2 - PPSV23, PCV20, or PCV21) 07/18/2019 05/23/2019 Medicare Wellness Visit 11/15/2020 11/16/2019 Mammogram Screening 04/11/2021 04/11/2019 Osteoporosis Screening 04/11/2021 04/11/2019 Yearly Review of HCD 09/08/2022 09/08/2021, 02/12/2021 COVID-19 Vaccine (4 - 2024-2 6 season) 2025 07/11/2021, 11/19/2020, 10/22/2020 Influenza Vaccine (#1) 2025 9, 05/31/2018 RSV Vaccines (1 - 1-dose 75+ series) 2028 Adult Tetanus Booster 04/18/2028 04/18/2018 , 01/02/1998 Meningococcal B Vaccine Aged Out No l onger eligible based on patient's age to complete this topic Insurance [id number] [place] [id number] [facility] Member Subscriber Plan / Payer ( fective 2018-Present) Name:Annie Bass Relation to Subscriber:Self Name:Annie Bass Payer ID:[id number] (NAIC) Type:Medicare Advantage Address: [place] [id number] [place] [id number] [facility] Member Subscriber Plan / Payer ( fective 2018-Present) Name:Annie Bass Relation to Subscriber:Self Name:Annie Bass Payer ID:[id number] (NAIC) Type:Medicare Advantage Address: [place] [id number] [place] [id number] [facility] [place] [id number] [employer] MEDICARE ADVANTAGE [place] [id number] Advance Directives For more information, please contact: [phone] Documents on File Type Date Recorded Patient Relationship Assoc Expl anation HCD - Complete 07/09/2015 6:13 PM * Full Code (Latest Code Status on File) Date Activated Date Inactivated Comments 09/08/2021 5:02 PM 09/09/2021 12:39 AM Question Answer Comments How was code status determined? Physician Determ ined Care Teams Registry Nurse Relationship Specialty Start Date End Date Ada Rogel PA [address] [place] [address] PCP - General Physician Support Assistant 09/26/21 José Antonio Alonzo MD [address] [place] [address] Neurology 10/13/21
--- OUTSIDE RECORDS SUMMARY | 2025-03-21 11:55 | XMS_ITS | Encounter Summary ---
Author Organization [facility] Address [address] [place] [address]. [place] [address] Care Team Providers Care Press Offbearer Name Role Phone Ada Rogel PA-C Primary Care Provider Encounter Details Date Type Department Care Team (Late st Contact Info) Description 03/09/2022 MyC Medical Advice [facility] Mental Health & Addiction Services [facility] [address] [place] [phone] Genoveva Horne LICSW [address] [address] Social History Tobacco Use Types Packs/Day Years Used Date Smoking Tobacco: Never Assessed PHQ-2 Answer Date Recorded PHQ-2 Score 2 01/12/2022 Comments Unknown Sex and Gender Information Value Date Recorded Sex Assigned at Not on file 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
--- OUTSIDE RECORDS SUMMARY | 2025-03-21 11:55 | XMS_ITS | Encounter Summary ---
Author Organization [facility] Address [address] [place] [address]. [place] [address] Care Team Providers Care General Office Associate Name Role Phone Ada Rogel PA-C Primary Care Provider Encounter Details Date Type Department Care Team (Late st Contact Info) Description 02/11/2022 MyC Medical Advice [facility] Mental Health & Addiction Services [facility] [address] [place] [phone] Genoveva Horne LICSW [address] [address] Social History Tobacco Use Types Packs/Day Years Used Date Smoking Tobacco: Never Assessed PHQ-2 Answer Date Recorded PHQ-2 Score 2 01/12/2022 Comments Unknown Sex and Gender Information Value Date Recorded Sex Assigned at Not on file 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
--- OUTSIDE RECORDS SUMMARY | 2025-03-21 11:55 | XMS_ITS | Encounter Summary ---
Author Organization [facility] Address [facility] [place] [address] Care Team Providers Care Shuffle Board Operator Name Role Phone Ada Rogel PA-C Primary Care Provider Encounter Details Date Type Department Care Team (Late st Contact Info) Description 01/12/2022 [facility] Health [facility] Services [address] [address] [place] [address] [facility] Social History Tobacco Use Types Packs/Day Years Used Date Smoking Tobacco: Never Assessed PHQ-2 Answer Date Recorded PHQ-2 Score 2 01/12/2022 Comments Unknown Sex and Gender Information Value Date Recorded Sex Assigned at Not on file 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
--- NOTE | 2025-03-21 12:11 | CRLHL7_ITS ---
For Patients: As a result of the Century Cures Act, medical imaging exams and procedure reports are released immediately into your electronic medical record. You may view this report before your referring provider. If you have questions, please contact your health care provider. INDICATION: Altered mental status COMPARISON: 07/24/2024 CT head TECHNIQUE: CT of the head without contrast. FINDINGS: Brain, ventricles, and extra-axial spaces: No acute intracranial hemorrhage. Egan-white differentiation is grossly preserved. Mild hypoattenuating changes in the white matter which are nonspecific, but commonly attributable to chronic microangiopathic change. Mild parenchymal volume loss with commensurate size of the ventricles and sulci. There are intracranial vascular calcifications. Bones: No acute osseous findings. Visualized paranasal sinuses are clear. Visualized mastoid air cells are clear. IMPRESSION: 1. No acute intracranial noncontrast CT findings. 2. Mild brain parenchymal involutional changes. Please note that all CT scans at this facility use dose modulation, iterative reconstruction, and/or weight-based dosing when appropriate to reduce radiation dose to as low as reasonably achievable. Dictated by Krishna Govea MD @ 03/21/2025 12:54:32 PM (Electronically Signed)
--- NOTE | 2025-03-21 12:11 | ED.AMS ---
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 Marijuana (THC) Screen POSITIVE A (Negative) Ur Drug Screen Comment See Note Ethyl Alcohol < 0.01 (0.01-0.03) % SARS-CoV-2 Ag (Rapid) Negative (Negative) <Jennifer Vaz MD - Last Filed: 03/21/25 14:39> Lab Results 03/21/25 03/21/25 03/21/25 Range/Units 12:28 12:50 13:53 WBC 7.09 (4.50-11.00) K/uL RBC 4.49 (4.00-5.20) m/uL Hgb 13.9 (12.0-16.0) gm/dL Hct 41.1 (33.0-51.0) % MCV 92 (80-100) fL MCH 31 (26-34) pg MCHC 34 (32-36) gm/dL RDW Coeff of Jocelin 13.8 (11.5-15.5) % Plt Count 189 (140-440) K/uL Neut % (Auto) 62.6 (42.0-72.0) % Lymph % (Auto) 21.6 (20-44) % [place] % (Auto) 11.8 H (0.0-11.0) % Eos % (Auto) 3.5 (0.0-7.0) % Baso % (Auto) 0.4 (0.0-3.0) % Neut # (Auto) 4.43 (1.7-7.0) K/uL Lymph # (Auto) 1.53 (0.90-2.90) K/uL [place] # (Auto) 0.80 (0.00-0.90) K/UL Eos # (Auto) 0.25 (0.00-0.50) K/uL Baso # (Auto) 0.03 (0.00-0.30) K/uL Abs Immat Gran (auto) 0.01 (0.00-0.30) K/uL Imm/Tot Granulo (auto) 0.1 % Sodium 136 (135-149) mmol/L Potassium 3.8 (3.6-5.1) mmol/L Chloride 104 (96-114) mmol/L Carbon Dioxide 25 (20-32) mmol/L Anion Gap 7 (7-15) mEq/L BUN 11 (7-30) mg/dL Creatinine 0.7 (0.5-1.5) mg/dL Estimated Creat Clear 38.94 Estimated GFR 92 ml/min Glucose 97 (60-115) mg/dL Lactate 1.0 (0.5-1.9) mmol/L Calcium 9.4 (8.4-10.6) mg/dL Magnesium 1.9 (1.5-2.6) mg/dL Total Bilirubin 0.8 (0.1-1.5) mg/dL Direct Bilirubin 0.2 (0.0-0.5) mg/dL AST 30 (12-35) U/L ALT 25 (4-35) U/L Alkaline Phosphatase 103 (40-150) U/L Ammonia < 8.7 L (13.1-30.0) umol/L Troponin I < 0.01 (0.01-0.04) ng/mL C-Reactive Protein 1.7 H (0.5-1.0) mg/dL Total Protein 6.5 (6.0-8.3) g/dL Albumin 4.0 (3.3-5.0) g/dL TSH 1.370 (0.270-4.200) uIU/mL Urine Color Yellow (Yellow) Urine Appearance Clear (Clear) Urine pH 7.5 (5.0-8.5) Ur Specific [place] 1.015 (1.000-1.030) Urine Protein Negative (Negative) Urine Glucose (UA) Negative (Negative) Urine Ketones 1+ A (Negative) Urine Blood Negative (Negative) Urine Nitrite Negative (Negative) Urine Bilirubin Negative (Negative) Urine Urobilinogen 0.2 (0.2-1.0) Ur Leukocyte Esterase Trace A (Negative) Urine RBC 0-2 (0-2) Urine WBC 0-2 (0-5) Ur Squamous Epith Cells None (None-Few) Urine Bacteria None (None) Salicylates < 1.0 L (1.0-10) mg/dL Urine Opiates Screen Negative (Negative) Ur Oxycodone Screen Negative (Negative) Urine Methadone Screen Negative (Negative) Acetaminophen < 10.0 (10.0-30.0) ug/mL Ur Barbiturates Screen Negative (Negative) U Tricyclic Antidepress Negative (Negative) Ur Phencyclidine Scrn Negative (Negative) Ur Amphetamines Screen Negative (Negative) U Methamphetamines Scrn Negative (Negative) U Benzodiazepines Scrn Negative (Negative) Urine Cocaine Screen Negative (Negative) U Marijuana (THC) Screen POSITIVE A (Negative) Ur Drug Screen Comment See Note Ethyl Alcohol < 0.01 (0.01-0.03) % SARS-CoV-2 Ag (Rapid) Negative (Negative) <Brannon Shay MD - Last Filed: 03/22/25 00:04> Lab Results 03/21/25 03/21/25 03/21/25 Range/Units 12:28 12:50 13:53 WBC 7.09 (4.50-11.00) K/uL RBC 4.49 (4.00-5.20) m/uL Hgb 13.9 (12.0-16.0) gm/dL Hct 41.1 (33.0-51.0) % MCV 92 (80-100) fL MCH 31 (26-34) pg MCHC 34 (32-36) gm/dL RDW Coeff of Jocelin 13.8 (11.5-15.5) % Plt Count 189 (140-440) K/uL Neut % (Auto) 62.6 (42.0-72.0) % Lymph % (Auto) 21.6 (20-44) % [place] % (Auto) 11.8 H (0.0-11.0) % Eos % (Auto) 3.5 (0.0-7.0) % Baso % (Auto) 0.4 (0.0-3.0) % Neut # (Auto) 4.43 (1.7-7.0) K/uL Lymph # (Auto) 1.53 (0.90-2.90) K/uL [place] # (Auto) 0.80 (0.00-0.90) K/UL Eos # (Auto) 0.25 (0.00-0.50) K/uL Baso # (Auto) 0.03 (0.00-0.30) K/uL Abs Immat Gran (auto) 0.01 (0.00-0.30) K/uL Imm/Tot Granulo (auto) 0.1 % Sodium 136 (135-149) mmol/L Potassium 3.8 (3.6-5.1) mmol/L Chloride 104 (96-114) mmol/L Carbon Dioxide 25 (20-32) mmol/L Anion Gap 7 (7-15) mEq/L BUN 11 (7-30) mg/dL Creatinine 0.7 (0.5-1.5) mg/dL Estimated Creat Clear 38.94 Estimated GFR 92 ml/min Glucose 97 (60-115) mg/dL Lactate 1.0 (0.5-1.9) mmol/L Calcium 9.4 (8.4-10.6) mg/dL Magnesium 1.9 (1.5-2.6) mg/dL Total Bilirubin 0.8 (0.1-1.5) mg/dL Direct Bilirubin 0.2 (0.0-0.5) mg/dL AST 30 (12-35) U/L ALT 25 (4-35) U/L Alkaline Phosphatase 103 (40-150) U/L Ammonia < 8.7 L (13.1-30.0) umol/L Troponin I < 0.01 (0.01-0.04) ng/mL C-Reactive Protein 1.7 H (0.5-1.0) mg/dL Total Protein 6.5 (6.0-8.3) g/dL Albumin 4.0 (3.3-5.0) g/dL TSH 1.370 (0.270-4.200) uIU/mL Urine Color Yellow (Yellow) Urine Appearance Clear (Clear) Urine pH 7.5 (5.0-8.5) Ur Specific [place] 1.015 (1.000-1.030) Urine Protein Negative (Negative) Urine Glucose (UA) Negative (Negative) Urine Ketones 1+ A (Negative) Urine Blood Negative (Negative) Urine Nitrite Negative (Negative) Urine Bilirubin Negative (Negative) Urine Urobilinogen 0.2 (0.2-1.0) Ur Leukocyte Esterase Trace A (Negative) Urine RBC 0-2 (0-2) Urine WBC 0-2 (0-5) Ur Squamous Epith Cells None (None-Few) Urine Bacteria None (None) Salicylates < 1.0 L (1.0-10) mg/dL Urine Opiates Screen Negative (Negative) Ur Oxycodone Screen Negative (Negative) Urine Methadone Screen Negative (Negative) Acetaminophen < 10.0 (10.0-30.0) ug/mL Ur Barbiturates Screen Negative (Negative) U Tricyclic Antidepress Negative (Negative) Ur Phencyclidine Scrn Negative (Negative) Ur Amphetamines Screen Negative (Negative) U Methamphetamines Scrn Negative (Negative) U Benzodiazepines Scrn Negative (Negative) Urine Cocaine Screen Negative (Negative) U Marijuana (THC) Screen POSITIVE A (Negative) Ur Drug Screen Comment See Note Ethyl Alcohol < 0.01 (0.01-0.03) % SARS-CoV-2 Ag (Rapid) Negative (Negative) <Adilson Mehta MD - Last Filed: 03/22/25 16:17> Lab Results 03/21/25 03/21/25 03/21/25 Range/Units 12:28 12:50 13:53 WBC 7.09 (4.50-11.00) K/uL RBC 4.49 (4.00-5.20) m/uL Hgb 13.9 (12.0-16.0) gm/dL Hct 41.1 (33.0-51.0) % MCV 92 (80-100) fL MCH 31 (26-34) pg MCHC 34 (32-36) gm/dL RDW Coeff of Jocelin 13.8 (11.5-15.5) % Plt Count 189 (140-440) K/uL Neut % (Auto) 62.6 (42.0-72.0) % Lymph % (Auto) 21.6 (20-44) % [place] % (Auto) 11.8 H (0.0-11.0) % Eos % (Auto) 3.5 (0.0-7.0) % Baso % (Auto) 0.4 (0.0-3.0) % Neut # (Auto) 4.43 (1.7-7.0) K/uL Lymph # (Auto) 1.53 (0.90-2.90) K/uL [place] # (Auto) 0.80 (0.00-0.90) K/UL Eos # (Auto) 0.25 (0.00-0.50) K/uL Baso # (Auto) 0.03 (0.00-0.30) K/uL Abs Immat Gran (auto) 0.01 (0.00-0.30) K/uL Imm/Tot Granulo (auto) 0.1 % Sodium 136 (135-149) mmol/L Potassium 3.8 (3.6-5.1) mmol/L Chloride 104 (96-114) mmol/L Carbon Dioxide 25 (20-32) mmol/L Anion Gap 7 (7-15) mEq/L BUN 11 (7-30) mg/dL Creatinine 0.7 (0.5-1.5) mg/dL Estimated Creat Clear 38.94 Estimated GFR 92 ml/min Glucose 97 (60-115) mg/dL Lactate 1.0 (0.5-1.9) mmol/L Calcium 9.4 (8.4-10.6) mg/dL Magnesium 1.9 (1.5-2.6) mg/dL Total Bilirubin 0.8 (0.1-1.5) mg/dL Direct Bilirubin 0.2 (0.0-0.5) mg/dL AST 30 (12-35) U/L ALT 25 (4-35) U/L Alkaline Phosphatase 103 (40-150) U/L Ammonia < 8.7 L (13.1-30.0) umol/L Troponin I < 0.01 (0.01-0.04) ng/mL C-Reactive Protein 1.7 H (0.5-1.0) mg/dL Total Protein 6.5 (6.0-8.3) g/dL Albumin 4.0 (3.3-5.0) g/dL TSH 1.370 (0.270-4.200) uIU/mL Urine Color Yellow (Yellow) Urine Appearance Clear (Clear) Urine pH 7.5 (5.0-8.5) Ur Specific [place] 1.015 (1.000-1.030) Urine Protein Negative (Negative) Urine Glucose (UA) Negative (Negative) Urine Ketones 1+ A (Negative) Urine Blood Negative (Negative) Urine Nitrite Negative (Negative) Urine Bilirubin Negative (Negative) Urine Urobilinogen 0.2 (0.2-1.0) Ur Leukocyte Esterase Trace A (Negative) Urine RBC 0-2 (0-2) Urine WBC 0-2 (0-5) Ur Squamous Epith Cells None (None-Few) Urine Bacteria None (None) Salicylates < 1.0 L (1.0-10) mg/dL Urine Opiates Screen Negative (Negative) Ur Oxycodone Screen Negative (Negative) Urine Methadone Screen Negative (Negative) Acetaminophen < 10.0 (10.0-30.0) ug/mL Ur Barbiturates Screen Negative (Negative) U Tricyclic Antidepress Negative (Negative) Ur Phencyclidine Scrn Negative (Negative) Ur Amphetamines Screen Negative (Negative) U Methamphetamines Scrn Negative (Negative) U Benzodiazepines Scrn Negative (Negative) Urine Cocaine Screen Negative (Negative) U Marijuana (THC) Screen POSITIVE A (Negative) Ur Drug Screen Comment See Note Ethyl Alcohol < 0.01 (0.01-0.03) % SARS-CoV-2 Ag (Rapid) Negative (Negative) <Ada Landry MD - Last Filed: 03/23/25 00:47> Imaging Data CT scan - head: Attestation: I have reviewed the pertinent imaging results. <Jennifer Vaz MD - Last Filed: 03/21/25 14:39> My impression: I see no evidence of any acute intracranial pathology on my preliminary review; will await Radiology over-read. <Jennifer Vaz MD - Last Filed: 03/21/25 14:39> Radiologist's impression: Patient: ANNIE MACIAS Facility:?[facility] Patient ID:?[id number] Site Patient ID:?[id number]. Site :?[id number] Study:?CT-Head W/O-03/21/2025 12:25:59 PM Ordering Physician:Lydia Rodriguez Final Report: INDICATION: Altered mental status COMPARISON: 07/24/2024 CT head TECHNIQUE: CT of the head without contrast. FINDINGS: Brain, ventricles, and extra-axial spaces: No acute intracranial hemorrhage. Egan-white differentiation is grossly preserved. Mild hypoattenuating changes in the white matter which are nonspecific, but commonly attributable to chronic microangiopathic change. Mild parenchymal volume loss with commensurate size of the ventricles and sulci. There are intracranial vascular calcifications. Bones: No acute osseous findings. Visualized paranasal sinuses are clear. Visualized mastoid air cells are clear. IMPRESSION: 1. No acute intracranial noncontrast CT findings. 2. Mild brain parenchymal involutional changes. Please note that all CT scans at this facility use dose modulation, iterative reconstruction, and/or weight-based dosing when appropriate to reduce radiation dose to as low as reasonably achievable. Dictated by Krishna Govea MD @ 03/21/2025 12:54:32 PM (Electronic Signature) <Jennifer Vaz MD - Last Filed: 03/21/25 14:39> Discharge Plan Discharge Clinical Impression: Acute psychosis <Jennifer Vaz MD - Last Filed: 03/21/25 14:39> Prescriptions: No Action hydroxyzine HCl 50 mg tablet 50 mg PO 3XD rosuvastatin 20 mg tablet 20 mg PO QPM folic acid 1 mg tablet 1 mg PO DAILY fluoxetine 20 mg capsule 20 mg PO DAILY modafinil 100 mg tablet 100 mg PO QAM Multivitamin 50 Plus Tablet 1 tab PO DAILY bupropion HCl 150 mg tablet extended release 24 hr 150 mg PO QAM <Jennifer Vaz MD - Last Filed: 03/21/25 14:39> Follow Up/Referrals: Provider,Not a Local [Primary Care Provider, Family Practice] <Jennifer Vaz MD - Last Filed: 03/21/25 14:39>
[2025-03-21 12:39] LABS: Appearance Urine Clear (Clear)
[2025-03-21 12:49] LABS: Cannabinoid Screen Urine POSITIVE (Negative); Methamphetamines Screen Urine Negative (Negative); Tricyclic Antidepressant Urine Negative (Negative)
[2025-03-21 12:57] LABS: Lactate* 1.0 mmol/L (0.5-1.9)
[2025-03-21 12:58] LABS: Hematocrit* 41.1 % (33.0-51.0); Hemoglobin* 13.9 gm/dL (12.0-16.0); Immature Granulocytes Abs Auto 0.01 K/uL (0.00-0.30); Immature Granulocytes Pct Auto 0.1 %; Lymphocytes Absolute Auto 1.53 K/uL (0.90-2.90); Mean Corpuscular HGB Conc 34 gm/dL (32-36); Mean Corpuscular Hemoglobin 31 pg (26-34); Mean Corpuscular Volume 92 fL (80-100); RDW Coefficient of Variation % 13.8 % (11.5-15.5); Red Blood Count* 4.49 m/uL (4.00-5.20); White Blood Count* 7.09 K/uL (4.50-11.00)
[2025-03-21 13:01] LABS: Slide Review Reflex No
[2025-03-21 13:15] LABS: Albumin* 4.0 g/dL (3.3-5.0); Chloride* 104 mmol/L (96-114)
[2025-03-21 13:16] LABS: Potassium* 3.8 mmol/L (3.6-5.1); Sodium* 136 mmol/L (135-149)
[2025-03-21 13:18] LABS: Alanine Aminotransferase* 25 U/L (4-35); Alkaline Phosphatase* 103 U/L (40-150); Anion Gap 7 mEq/L (7-15); Aspartate Amino Transferase* 30 U/L (12-35); Bilirubin Direct* 0.2 mg/dL (0.0-0.5); Bilirubin Total* 0.8 mg/dL (0.1-1.5); Blood Urea Nitrogen* 11 mg/dL (7-30); Carbon Dioxide* 25 mmol/L (20-32); Creatinine* 0.7 mg/dL (0.5-1.5); Est. Creatinine Clearance* 38.94; Estimated Glomerular Filt Rate 92 ml/min; Total Protein* 6.5 g/dL (6.0-8.3)
[2025-03-21 13:19] LABS: Calcium* 9.4 mg/dL (8.4-10.6); Glucose* 97 mg/dL (60-115)
[2025-03-21 13:29] LABS: Ammonia* < 8.7 umol/L (13.1-30.0)
[2025-03-21 13:30] LABS: Ethanol* < 0.01 % (0.01-0.03)
[2025-03-21] MEDS: ACETAMINOPHEN 500 MG TABLET 1000 MG PO ×2 (14:00→22:15)
[2025-03-21 14:04] LABS: Acetaminophen* < 10.0 ug/mL (10.0-30.0); Salicylate* < 1.0 mg/dL (1.0-10)
[2025-03-21 14:26] LABS: TSH With Reflex to FT4* 1.370 uIU/mL (0.270-4.200)
[2025-03-21 14:28] LABS: SARS Antigen* Negative (Negative)
[2025-03-22] MEDS: CYCLOBENZAPRINE HCL 10 MG TABLET PO (02:42)
[2025-03-22 05:30] VITALS: BP 128/85; PULSE 81; RESP 18; TEMP 36.8; O2SAT 94
[2025-03-22 14:42] VITALS: BP 123/93; PULSE 97; RESP 18; TEMP 36.6; O2SAT 91
[2025-03-22] MEDS: ACETAMINOPHEN 500 MG TABLET PO (17:52)
[2025-03-22 19:30] VITALS: BP 107/80; PULSE 78; RESP 18; TEMP 36.4; O2SAT 95
[2025-03-22] MEDS: TRAZODONE HCL 50 MG TABLET PO (20:16)
[2025-03-23] MEDS: ACETAMINOPHEN 500 MG TABLET 1000 MG PO (04:05)
[2025-03-23 10:00] VITALS: BP 111/94; PULSE 66; RESP 16; TEMP 36.2; O2SAT 94
== END 2025-03-23 14:18 | disposition home or self-care (01) ==
PROVIDERS: Family Medicine; Emergency Provider Family Medicine
DX: F23 Brief psychotic disorder (principal)
CPT/HCPCS: 36415; 70450; 80053; 80143; 80179; 80306; 81001; 82077; 82140; 82248; 83605; 83735; 84443; 84484; 85025; 86140; 87086; 87426; 94761; 99284; 99285; Q3014; A9270